=== PATIENT | male | born 1965 | race Caucasian/White ===

== ENCOUNTER 2017-09-22 19:24 | Emergency (ER) | payer MEDICARE ==
[~2017-09-22 19:24] MED LIST: AMLO-511 PO; CLON1PAT13 TD; DIVA-76 PO; FLUD25I IM; METO50 PO; QUET100T PO
== END 2017-09-22 20:10 | disposition left against medical advice (07) ==
LOC: EMS 19:25
DX: Z00.00 Encounter for general adult medical examination without abnormal findings (principal); Z53.21 Procedure and treatment not carried out due to patient leaving prior to being seen by health care provider

== ENCOUNTER 2017-09-22 20:28 | Emergency (ER) | payer MEDICARE ==
[~2017-09-22] VITALS: Ht 188 cm; Wt 93.2 kg
[2017-09-22 21:15] LABS: AMPHET/METH SCREEN,URINE NEGATIVE (NEGATIVE); BARBITURATE SCREEN, URINE NEGATIVE (NEGATIVE); BENZODIAZEPINES SCREEN,URINE NEGATIVE (NEGATIVE); CANNABINOID SCREEN,URINE POSITIVE (NEGATIVE); COCAINE SCREEN,URINE NEGATIVE (NEGATIVE); METHADONE SCREEN, URINE NEGATIVE (NEGATIVE); OPIATE SCREEN,URINE NEGATIVE (NEGATIVE); PHENCYCLIDINE SCREEN,URINE NEGATIVE (NEGATIVE)
[2017-09-22 21:21] LABS: BASOPHILS % (AUTO) 0.7 % (0.0-2.0); EOSINOPHILS % (AUTO) 4.9 % (1.0-6.0); HEMATOCRIT 37.5 % (41-53); LYMPHOCYTES % (AUTO) 32.4 % (22.0-44.0); MEAN CORPUSCULAR HEMOGLOBIN 29.9 pg (26.0-34.0); MEAN CORPUSCULAR HGB CONC 34.6 G/dL (31.0-37.0); MEAN CORPUSCULAR VOLUME 86 fL (80-100); MONOCYTES # (AUTO) 0.6 K/uL (0.1-1.0); MONOCYTES % (AUTO) 6.6 % (2.0-9.0); NEUTROPHILS # (AUTO) 5.1 K/uL (1.8-7.7); NEUTROPHILS % (AUTO) 55.4 % (40.0-70.0); PLATELET COUNT (AUTO) 290 K/uL (150-450); RED BLOOD CELL COUNT(AUTO) 4.35 MIL/uL (4.50-5.90); RED CELL DISTRIBUTION WIDTH 13.1 % (11.5-14.5)
[2017-09-22 21:29] LABS: ANION GAP 5 mmol/L (8-16); CALCIUM, TOTAL 8.6 mg/dL (8.8-10.5); CARBON DIOXIDE 31 mmol/L (22-29); CHLORIDE 99 mmol/L (98-107); CREATININE 0.87 mg/dL (0.60-1.30); GLOMERULAR FILTR. RATE CALC > 60 mL/min (>60); GLUCOSE,RANDOM 88 mg/dL (70-110); POTASSIUM 4.6 mmol/L (3.5-5.1); SODIUM SERUM 135 mmol/L (136-145); UREA NITROGEN, BLOOD 10 mg/dL (7-18)
[2017-09-22 21:35] LABS: ALANINE AMINOTRANSFERASE 23 U/L (12-78); ALBUMIN 3.5 g/dL (3.4-5.0); ALKALINE PHOSPHATASE 73 U/L (46-116); ASPARTATE AMINOTRANSFERASE 27 U/L (15-37); BILIRUBIN,TOTAL 0.4 mg/dL (0.1-1.0); TOTAL PROTEIN, SERUM 6.7 g/dL (6.4-8.2)
[2017-09-23] MEDS ORDERED: OLANZapine 5 MG TABLET PO ONE (02:00)
[2017-09-23 05:03] VITALS: BP 119/86
== END 2017-09-23 05:11 | disposition home or self-care (01) ==
LOC: EMS 20:28
DX: F20.0 Paranoid schizophrenia (principal); F12.10 Cannabis abuse, uncomplicated; F15.10 Other stimulant abuse, uncomplicated; F31.9 Bipolar disorder, unspecified; Z59.0 Homelessness; Z79.899 Other long term (current) drug therapy; Z88.8 Allergy status to other drugs, medicaments and biological substances
CPT/HCPCS: 36415; 80053; 80307; 85025; 99284; G0480

== ENCOUNTER 2017-11-23 16:51 | Inpatient (IN) | payer MEDICARE ==
[~2017-11-23] VITALS: Ht 182.9 cm; Wt 86.5 kg
[~2017-11-23 16:51] MED LIST changes: -DIVA-76 PO
[2017-11-23] MEDS ORDERED: ALBUTEROL SULFATE 2.5 MG/0.5 ML NEB SOLUTION NEB ONE (17:45)
[2017-11-23] MEDS ORDERED: IPRATROPIUM BROMIDE 0.5 MG/2.5 ML NEB SOLUTION NEB ONE (17:45)
[2017-11-23 18:39] LABS: BASOPHILS % (AUTO) 0.5 % (0.0-2.0); HEMATOCRIT 40.5 % (41-53); HEMOGLOBIN 14.3 g/dL (13.5-17.5); LYMPHOCYTES # (AUTO) 2.5 K/uL (1.0-4.8); LYMPHOCYTES % (AUTO) 28.1 % (22.0-44.0); MEAN CORPUSCULAR HEMOGLOBIN 29.9 pg (26.0-34.0); MEAN CORPUSCULAR HGB CONC 35.2 G/dL (31.0-37.0); MEAN CORPUSCULAR VOLUME 85 fL (80-100); MONOCYTES # (AUTO) 0.7 K/uL (0.1-1.0); MONOCYTES % (AUTO) 7.4 % (2.0-9.0); NEUTROPHILS # (AUTO) 5.6 K/uL (1.8-7.7); PLATELET COUNT (AUTO) 247 K/uL (150-450); RED BLOOD CELL COUNT(AUTO) 4.77 MIL/uL (4.50-5.90); RED CELL DISTRIBUTION WIDTH 13.3 % (11.5-14.5)
[2017-11-23 18:47] LABS: ANION GAP 6 mmol/L (8-16); CARBON DIOXIDE 27 mmol/L (22-29); CHLORIDE 103 mmol/L (98-107); CREATININE 0.89 mg/dL (0.60-1.30); GLOMERULAR FILTR. RATE CALC > 60 mL/min (>60); GLUCOSE,RANDOM 122 mg/dL (70-110); SODIUM SERUM 136 mmol/L (136-145); UREA NITROGEN, BLOOD 8 mg/dL (7-18)
[2017-11-23 18:53] LABS: ALANINE AMINOTRANSFERASE 17 U/L (12-78); ALBUMIN 3.6 g/dL (3.4-5.0); ALKALINE PHOSPHATASE 73 U/L (46-116); ASPARTATE AMINOTRANSFERASE 20 U/L (15-37); BILIRUBIN,TOTAL 0.5 mg/dL (0.1-1.0); TOTAL PROTEIN, SERUM 6.7 g/dL (6.4-8.2)
[2017-11-23] MEDS ORDERED: ZOLPIDEM TARTRATE 10 MG TABLET PO PRN (19:00)
[2017-11-23] MEDS ORDERED: QUEtiapine FUMARATE 100 MG TABLET PO PRN (19:00)
[2017-11-23] MEDS ORDERED: IBUPROFEN 400 MG TABLET PO PRN ×2 (19:00→22:15)
[2017-11-23] MEDS ORDERED: ACETAMINOPHEN 325 MG TABLET PO PRN ×2 (19:00→22:15)
[2017-11-23 19:14] LABS: AMPHET/METH SCREEN,URINE NEGATIVE (NEGATIVE); BARBITURATE SCREEN, URINE NEGATIVE (NEGATIVE); BENZODIAZEPINES SCREEN,URINE NEGATIVE (NEGATIVE); CANNABINOID SCREEN,URINE POSITIVE (NEGATIVE); COCAINE SCREEN,URINE NEGATIVE (NEGATIVE); METHADONE SCREEN, URINE NEGATIVE (NEGATIVE); OPIATE SCREEN,URINE NEGATIVE (NEGATIVE)
[2017-11-23 19:15] LABS: PHENCYCLIDINE SCREEN,URINE NEGATIVE (NEGATIVE)
[2017-11-23] MEDS ORDERED: ONDANSETRON HCL 4 MG TABLET PO PRN (22:15)
[2017-11-23] MEDS ORDERED: DOCUSATE SODIUM 100 MG CAPSULE PO PRN (22:15)
[2017-11-23] MEDS ORDERED: ALBUTEROL SULFATE HFA 90 MCG/PUFF 8 GM INHALER IH PRN (22:15)
[2017-11-23] MEDS ORDERED: MAGNESIUM HYDROXIDE SUSPENSION 30 ML UDCUP PO PRN (22:15)
[2017-11-23] MEDS ORDERED: PETROLATUM,WHITE 71 GM JELLY TP PRN (22:15)
[2017-11-23] MEDS ORDERED: LOPERAMIDE HCL 2 MG CAPSULE PO PRN (22:15)
[2017-11-23] MEDS ORDERED: GuaiFENesin/D-METHORPHAN [SUGAR-FREE] 200-20MG/10 ML SYRUP UDCUP PO PRN (22:15)
[2017-11-23] MEDS ORDERED: NICOTINE 14 MG/24 HOUR PATCH TD PRN (22:15)
[2017-11-23] MEDS ORDERED: MAG HYDROX/AL HYDROX/SIMETH ES 30 ML SUSPENSION UDCUP PO PRN (22:15)
[2017-11-23] MEDS ORDERED: CloNIDine HCL 0.1 MG TABLET PO PRN (22:15)
[2017-11-24 09:26] VITALS: BP 154/92
[2017-11-24] MEDS: NICOTINE 21 MG/24 HOUR PATCH TD SCH (10:48)
[2017-11-24] MEDS: LORazepam 2 MG TABLET PO PRN (11:16)
[2017-11-24 20:54] VITALS: BP 149/89
[2017-11-24] MEDS: QUEtiapine FUMARATE 25 MG TABLET PO SCH (21:09)
[2017-11-24] MEDS: BENZTROPINE MESYLATE 1 MG TABLET PO SCH (21:10)
[2017-11-25 09:22] VITALS: BP 148/95
[2017-11-25] MEDS: NICOTINE 21 MG/24 HOUR PATCH TD SCH (10:17)
[2017-11-25] MEDS: LORazepam 2 MG TABLET PO PRN ×2 (11:21→16:18)
[2017-11-25] MEDS: AmLODIPine BESYLATE 5 MG TABLET PO SCH (16:17)
[2017-11-25 19:51] VITALS: BP 146/92
[2017-11-25] MEDS: QUEtiapine FUMARATE 25 MG TABLET PO SCH (20:55)
[2017-11-25] MEDS: BENZTROPINE MESYLATE 1 MG TABLET PO SCH (20:55)
[2017-11-26] MEDS: AmLODIPine BESYLATE 5 MG TABLET PO SCH (09:03)
[2017-11-26] MEDS: NICOTINE 21 MG/24 HOUR PATCH TD SCH (09:03)
[2017-11-26] MEDS: LORazepam 2 MG TABLET PO PRN (09:32)
[2017-11-26] MEDS ORDERED: BENZ1TAB10 PO (09:38)
[2017-11-26] MEDS ORDERED: AMLO-511 PO (09:38)
[2017-11-26 10:10] VITALS: BP 146/112
== END 2017-11-26 15:19 | disposition home or self-care (01) | DRG 885 ==
LOC: EMS 16:53 → 3EI 20:21
DX: F20.0 Paranoid schizophrenia (principal); R45.851 Suicidal ideations; F19.20 Other psychoactive substance dependence, uncomplicated; I10 Essential (primary) hypertension; F31.9 Bipolar disorder, unspecified; F12.10 Cannabis abuse, uncomplicated; F15.90 Other stimulant use, unspecified, uncomplicated; R73.9 Hyperglycemia, unspecified; F17.210 Nicotine dependence, cigarettes, uncomplicated; Z59.0 Homelessness; Z91.5 Personal history of self-harm; Z71.51 Drug abuse counseling and surveillance of drug abuser
CPT/HCPCS: 99285; G0480

== ENCOUNTER 2018-03-03 15:34 | Inpatient (IN) | payer MEDICARE ==
[~2018-03-03] VITALS: Ht 182.9 cm; Wt 93.0 kg
[~2018-03-03 15:34] MED LIST changes: +BENZ1TAB10 PO; -CLON1PAT13 TD; -FLUD25I IM; -METO50 PO
[2018-03-03] MEDS ORDERED: FLUP2.5 PO (16:19)
[2018-03-03 16:58] LABS: BASOPHILS % (AUTO) 0.5 % (0.0-2.0); HEMATOCRIT 42.2 % (41-53); HEMOGLOBIN 14.6 g/dL (13.5-17.5); LYMPHOCYTES # (AUTO) 3.1 K/uL (1.0-4.8); LYMPHOCYTES % (AUTO) 36.3 % (22.0-44.0); MEAN CORPUSCULAR HGB CONC 34.6 G/dL (31.0-37.0); MEAN CORPUSCULAR VOLUME 87 fL (80-100); MONOCYTES # (AUTO) 0.7 K/uL (0.1-1.0); MONOCYTES % (AUTO) 7.7 % (2.0-9.0); NEUTROPHILS # (AUTO) 4.3 K/uL (1.8-7.7); NEUTROPHILS % (AUTO) 50.5 % (40.0-70.0); PLATELET COUNT (AUTO) 310 K/uL (150-450); RED BLOOD CELL COUNT(AUTO) 4.86 MIL/uL (4.50-5.90); RED CELL DISTRIBUTION WIDTH 13.1 % (11.5-14.5)
[2018-03-03 17:07] LABS: AMPHET/METH SCREEN,URINE NEGATIVE (NEGATIVE); BARBITURATE SCREEN, URINE NEGATIVE (NEGATIVE); BENZODIAZEPINES SCREEN,URINE NEGATIVE (NEGATIVE); CANNABINOID SCREEN,URINE POSITIVE (NEGATIVE); COCAINE SCREEN,URINE NEGATIVE (NEGATIVE); METHADONE SCREEN, URINE NEGATIVE (NEGATIVE); OPIATE SCREEN,URINE NEGATIVE (NEGATIVE)
[2018-03-03 17:08] LABS: PHENCYCLIDINE SCREEN,URINE NEGATIVE (NEGATIVE)
[2018-03-03 17:10] LABS: ANION GAP 5 mmol/L (8-16); CALCIUM, TOTAL 9.1 mg/dL (8.8-10.5); CARBON DIOXIDE 31 mmol/L (22-29); CHLORIDE 100 mmol/L (98-107); CREATININE 0.68 mg/dL (0.60-1.30); GLOMERULAR FILTR. RATE CALC > 60 mL/min (>60); GLUCOSE,RANDOM 103 mg/dL (70-110); POTASSIUM 5.2 mmol/L (3.5-5.1); SODIUM SERUM 136 mmol/L (136-145); UREA NITROGEN, BLOOD 9 mg/dL (7-18)
[2018-03-03 17:15] LABS: ALANINE AMINOTRANSFERASE 17 U/L (12-78); ALBUMIN 3.5 g/dL (3.4-5.0); ALKALINE PHOSPHATASE 85 U/L (46-116); ASPARTATE AMINOTRANSFERASE 16 U/L (15-37); BILIRUBIN,TOTAL 0.2 mg/dL (0.1-1.0); TOTAL PROTEIN, SERUM 6.9 g/dL (6.4-8.2)
[2018-03-03] MEDS ORDERED: QUEtiapine FUMARATE 25 MG TABLET PO PRN (17:30)
[2018-03-03] MEDS ORDERED: ZOLPIDEM TARTRATE 10 MG TABLET PO PRN (17:30)
[2018-03-03 20:20] VITALS: BP 135/82
[2018-03-03] MEDS ORDERED: PETROLATUM,WHITE 71 GM JELLY TP PRN (21:00)
[2018-03-03] MEDS ORDERED: MAGNESIUM HYDROXIDE SUSPENSION 30 ML UDCUP PO PRN (21:00)
[2018-03-03] MEDS ORDERED: IBUPROFEN 400 MG TABLET PO PRN (21:00)
[2018-03-03] MEDS ORDERED: MAG HYDROX/AL HYDROX/SIMETH ES 30 ML SUSPENSION UDCUP PO PRN (21:00)
[2018-03-03] MEDS ORDERED: LOPERAMIDE HCL 2 MG CAPSULE PO PRN (21:00)
[2018-03-03] MEDS ORDERED: ACETAMINOPHEN 325 MG TABLET PO PRN (21:00)
[2018-03-03] MEDS ORDERED: ALBUTEROL SULFATE HFA 90 MCG/PUFF 8 GM INHALER IH PRN (21:00)
[2018-03-03] MEDS ORDERED: ONDANSETRON HCL 4 MG TABLET PO PRN (21:00)
[2018-03-03] MEDS ORDERED: DOCUSATE SODIUM 100 MG CAPSULE PO PRN (21:00)
[2018-03-03] MEDS ORDERED: GuaiFENesin/D-METHORPHAN [SUGAR-FREE] 200-20MG/10 ML SYRUP UDCUP PO PRN (21:00)
[2018-03-04 08:03] VITALS: BP 165/100
[2018-03-04] MEDS ORDERED: QUET25TA PO (11:41)
[2018-03-04] MEDS ORDERED: SODIUM POLYSTYRENE SULFONATE 15 GM/60 ML SUSPENSION BOTTLE PO ONE (11:45)
[2018-03-04] MEDS: AmLODIPine BESYLATE 5 MG TABLET PO SCH (12:51)
[2018-03-04] MEDS: CloNIDine HCL 0.1 MG TABLET PO PRN (16:42)
[2018-03-04] MEDS: FluPHENAZine HCL 5 MG TABLET PO SCH (16:42)
[2018-03-04] MEDS: BENZTROPINE MESYLATE 2 MG TABLET PO SCH (16:43)
[2018-03-04 17:13] VITALS: BP_SYST 163; BP_SYST 170; BP_DIAS 100; BP_DIAS 105
[2018-03-04 17:46] VITALS: BP 162/95
[2018-03-04] MEDS: TraZODone HCL 50 MG TABLET PO SCH (20:14)
[2018-03-04] MEDS: QUEtiapine FUMARATE 25 MG TABLET PO SCH (20:16)
[2018-03-05] MEDS: AmLODIPine BESYLATE 5 MG TABLET PO SCH (08:14)
[2018-03-05] MEDS: BENZTROPINE MESYLATE 2 MG TABLET PO SCH ×2 (08:14→16:01)
[2018-03-05] MEDS: FluPHENAZine HCL 5 MG TABLET PO SCH ×2 (08:14→16:01)
[2018-03-05] MEDS: NICOTINE 14 MG/24 HOUR PATCH TD PRN (08:43)
[2018-03-05 09:33] VITALS: BP 158/114
[2018-03-05] MEDS: LORazepam 2 MG TABLET PO PRN ×2 (12:42→20:15)
[2018-03-05] MEDS: CloNIDine HCL 0.1 MG TABLET PO PRN (16:02)
[2018-03-05 17:00] VITALS: BP 158/109
[2018-03-05] MEDS: TraZODone HCL 50 MG TABLET PO SCH (20:09)
[2018-03-05] MEDS: QUEtiapine FUMARATE 25 MG TABLET PO SCH (20:09)
[2018-03-06 07:19] LABS: CHOL/HDL RATIO 2.9 (4.2-7.3); POTASSIUM 4.3 mmol/L (3.5-5.1); THYROID STIMULATING HORMONE 1.72 uIU/mL (0.36-3.74)
[2018-03-06] MEDS: FluPHENAZine HCL 5 MG TABLET PO SCH (08:11)
[2018-03-06] MEDS: BENZTROPINE MESYLATE 2 MG TABLET PO SCH (08:11)
[2018-03-06] MEDS: LORazepam 2 MG TABLET PO PRN (08:14)
[2018-03-06] MEDS: NICOTINE 14 MG/24 HOUR PATCH TD PRN (08:15)
[2018-03-06 08:49] VITALS: BP 158/116
[2018-03-06] MEDS ORDERED: AmLODIPine BESYLATE 5 MG TABLET PO SCH (09:00)
[2018-03-06] MEDS ORDERED: BENZ2TAB10 PO (14:09)
[2018-03-06] MEDS ORDERED: TRAZ-219 PO (14:09)
[2018-03-06] MEDS ORDERED: FLUP5 PO (14:09)
[2018-03-06] MEDS ORDERED: FLUD25I IM (14:10)
[2018-03-06] MEDS ORDERED: AMLO-511 PO (14:13)
[2018-03-18] MEDS ORDERED: FluPHENAZine DECANOATE 25 MG/ML IM SCH (09:00)
== END 2018-03-06 15:27 | disposition home or self-care (01) | DRG 885 ==
LOC: EMS 15:35 → 3EX 18:00
PROVIDERS: ADMIT Psychiatry & Neurology Child & Adolescent Psychiatry; ATTEND Psychiatry & Neurology Child & Adolescent Psychiatry
DX: F20.0 Paranoid schizophrenia (principal); R45.851 Suicidal ideations; F31.9 Bipolar disorder, unspecified; I10 Essential (primary) hypertension; J44.9 Chronic obstructive pulmonary disease, unspecified; R45.850 Homicidal ideations; F17.200 Nicotine dependence, unspecified, uncomplicated; Z71.6 Tobacco abuse counseling; F15.90 Other stimulant use, unspecified, uncomplicated; E87.6 Hypokalemia; Z71.51 Drug abuse counseling and surveillance of drug abuser; Z79.899 Other long term (current) drug therapy
CPT/HCPCS: 84132; 84443; 96360; G0378; G0480

== ENCOUNTER 2018-10-26 15:46 | Inpatient (IN) | payer MEDICARE ==
[~2018-10-26] VITALS: Ht 182.9 cm; Wt 84.4 kg
[~2018-10-26 15:46] MED LIST changes: -AMLO-511 PO; -BENZ1TAB10 PO; +BENZ2TAB10 PO; +CLON-570 PO; +FLUD25I IM; +FLUP5 PO; +METO50 PO; -QUET100T PO; +QUET25TA PO
[2018-10-26 16:55] LABS: BASOPHILS % (AUTO) 0.3 % (0.0-2.0); EOSINOPHILS % (AUTO) 2.1 % (1.0-6.0); HEMOGLOBIN 13.8 g/dL (13.5-17.5); LYMPHOCYTES % (AUTO) 26.2 % (22.0-44.0); MEAN CORPUSCULAR HEMOGLOBIN 29.8 pg (26.0-34.0); MEAN CORPUSCULAR HGB CONC 33.7 G/dL (31.0-37.0); MEAN CORPUSCULAR VOLUME 88 fL (80-100); MONOCYTES # (AUTO) 0.5 K/uL (0.1-1.0); NEUTROPHILS # (AUTO) 5.1 K/uL (1.8-7.7); NEUTROPHILS % (AUTO) 65.4 % (40.0-70.0); PLATELET COUNT (AUTO) 265 K/uL (150-450); RED BLOOD CELL COUNT(AUTO) 4.65 MIL/uL (4.50-5.90); RED CELL DISTRIBUTION WIDTH 13.2 % (11.5-14.5)
[2018-10-26 17:12] LABS: ANION GAP 8 mmol/L (8-16); CALCIUM, TOTAL 8.9 mg/dL (8.8-10.5); CARBON DIOXIDE 26 mmol/L (22-29); CHLORIDE 104 mmol/L (98-107); CREATININE 0.65 mg/dL (0.60-1.30); GLOMERULAR FILTR. RATE CALC > 60 mL/min (>60); GLUCOSE,RANDOM 93 mg/dL (70-110); SODIUM SERUM 138 mmol/L (136-145); UREA NITROGEN, BLOOD 6 mg/dL (7-18)
[2018-10-26 17:17] LABS: ALANINE AMINOTRANSFERASE 7 U/L (12-78); ALBUMIN 3.9 g/dL (3.4-5.0); ALKALINE PHOSPHATASE 78 U/L (46-116); ASPARTATE AMINOTRANSFERASE 17 U/L (15-37); BILIRUBIN,TOTAL 0.4 mg/dL (0.1-1.0); TOTAL PROTEIN, SERUM 6.8 g/dL (6.4-8.2)
[2018-10-26 19:47] LABS: AMPHET/METH SCREEN,URINE NEGATIVE (NEGATIVE); BARBITURATE SCREEN, URINE NEGATIVE (NEGATIVE); BENZODIAZEPINES SCREEN,URINE NEGATIVE (NEGATIVE); CANNABINOID SCREEN,URINE POSITIVE (NEGATIVE); COCAINE SCREEN,URINE NEGATIVE (NEGATIVE); METHADONE SCREEN, URINE NEGATIVE (NEGATIVE); OPIATE SCREEN,URINE NEGATIVE (NEGATIVE)
[2018-10-26 19:49] LABS: PHENCYCLIDINE SCREEN,URINE NEGATIVE (NEGATIVE)
[2018-10-26] MEDS ORDERED: HALOPERIDOL 5 MG TABLET PO PRN (22:00)
[2018-10-27] MEDS: LORazepam 2 MG TABLET PO PRN ×2 (00:23→10:38)
[2018-10-27] MEDS: ZOLPIDEM TARTRATE 10 MG TABLET PO PRN (00:23)
[2018-10-27 00:48] VITALS: BP 164/114
[2018-10-27 01:30] VITALS: BP 148/93
[2018-10-27 06:01] LABS: CHOL/HDL RATIO 2.8 (4.2-7.3)
[2018-10-27 09:00] VITALS: BP 148/98
[2018-10-27] MEDS: METOPROLOL TARTRATE 50 MG TABLET PO SCH ×2 (10:37→16:42)
[2018-10-27] MEDS: CloNIDine HCL 0.1 MG TABLET PO SCH ×2 (10:38→16:42)
[2018-10-27 16:40] VITALS: BP 159/98
[2018-10-27] MEDS ORDERED: ONDANSETRON HCL 4 MG TABLET PO PRN (21:30)
[2018-10-27] MEDS ORDERED: LOPERAMIDE HCL 2 MG CAPSULE PO PRN (21:30)
[2018-10-27] MEDS ORDERED: BENZOCAINE/MENTHOL LOZENGE MM PRN (21:30)
[2018-10-27] MEDS ORDERED: CloNIDine HCL 0.1 MG TABLET PO PRN (21:30)
[2018-10-27] MEDS ORDERED: MAGNESIUM HYDROXIDE SUSPENSION 30 ML UDCUP PO PRN (21:30)
[2018-10-27] MEDS ORDERED: IBUPROFEN 600 MG TABLET PO PRN (21:30)
[2018-10-27] MEDS ORDERED: ACETAMINOPHEN 325 MG TABLET PO PRN (21:30)
[2018-10-27] MEDS ORDERED: ALBUTEROL SULFATE HFA 90 MCG/PUFF 8 GM INHALER IH PRN (21:30)
[2018-10-27] MEDS ORDERED: PETROLATUM,WHITE 28 GM JELLY TP PRN (21:30)
[2018-10-27] MEDS ORDERED: DOCUSATE SODIUM 100 MG CAPSULE PO PRN (21:30)
[2018-10-27] MEDS ORDERED: OMEPRAZOLE 20 MG CAPSULE PO PRN (21:30)
[2018-10-27] MEDS ORDERED: BACITRACIN 28.4 GM OINTMENT TP PRN (21:30)
[2018-10-27] MEDS ORDERED: MAG HYDROX/AL HYDROX/SIMETH ES 30 ML SUSPENSION UDCUP PO PRN (21:30)
[2018-10-27] MEDS: TraZODone HCL 50 MG TABLET PO SCH (22:13)
[2018-10-27] MEDS: FluPHENAZine HCL 10 MG TABLET PO SCH (22:13)
[2018-10-28 08:30] VITALS: BP 135/74
[2018-10-28] MEDS: CloNIDine HCL 0.1 MG TABLET PO SCH ×2 (08:45→17:08)
[2018-10-28] MEDS: BENZTROPINE MESYLATE 1 MG TABLET PO SCH ×2 (08:45→17:09)
[2018-10-28] MEDS: METOPROLOL TARTRATE 50 MG TABLET PO SCH ×2 (08:48→17:09)
[2018-10-28] MEDS ORDERED: FluPHENAZine DECANOATE 25 MG/ML IM SCH (09:00)
[2018-10-28 16:24] VITALS: BP 155/91
[2018-10-28] MEDS: TraZODone HCL 50 MG TABLET PO SCH (20:21)
[2018-10-28] MEDS: FluPHENAZine HCL 10 MG TABLET PO SCH (20:22)
[2018-10-28] MEDS: LORazepam 2 MG TABLET PO PRN (22:35)
[2018-10-28] MEDS: ZOLPIDEM TARTRATE 10 MG TABLET PO PRN (22:37)
[2018-10-29] MEDS: METOPROLOL TARTRATE 50 MG TABLET PO SCH ×2 (08:56→16:41)
[2018-10-29] MEDS: BENZTROPINE MESYLATE 1 MG TABLET PO SCH ×2 (08:56→16:41)
[2018-10-29] MEDS: CloNIDine HCL 0.1 MG TABLET PO SCH ×2 (08:57→16:40)
[2018-10-29 09:01] VITALS: BP 156/109
[2018-10-29] MEDS: LORazepam 2 MG TABLET PO PRN (09:17)
[2018-10-29 18:45] VITALS: BP 161/101
[2018-10-29] MEDS: FluPHENAZine HCL 10 MG TABLET PO SCH (20:38)
[2018-10-29] MEDS: TraZODone HCL 50 MG TABLET PO SCH (20:38)
[2018-10-30] MEDS: METOPROLOL TARTRATE 50 MG TABLET PO SCH (08:37)
[2018-10-30] MEDS: CloNIDine HCL 0.1 MG TABLET PO SCH (08:37)
[2018-10-30] MEDS: BENZTROPINE MESYLATE 1 MG TABLET PO SCH (08:37)
[2018-10-30] MEDS: LORazepam 2 MG TABLET PO PRN ×2 (08:37→12:38)
[2018-10-30 09:51] VITALS: BP 136/86
[2018-10-30] MEDS ORDERED: BENZ1TAB10 PO (14:11)
[2018-10-30] MEDS ORDERED: TRAZ-252 PO (14:11)
== END 2018-10-30 16:40 | disposition home or self-care (01) | DRG 885 ==
LOC: EMS 15:46 → 3EX 22:00
PROVIDERS: ADMIT Psychiatry & Neurology Psychiatry; ATTEND Psychiatry & Neurology Psychiatry
DX: F20.0 Paranoid schizophrenia (principal); R45.851 Suicidal ideations; F12.90 Cannabis use, unspecified, uncomplicated; G47.00 Insomnia, unspecified; I10 Essential (primary) hypertension; K59.00 Constipation, unspecified; Z59.0 Homelessness; Z87.891 Personal history of nicotine dependence; Z88.0 Allergy status to penicillin; Z88.2 Allergy status to sulfonamides; Z88.8 Allergy status to other drugs, medicaments and biological substances; Z56.0 Unemployment, unspecified
CPT/HCPCS: G0378; G0480; J2680

== ENCOUNTER 2018-12-29 14:43 | Inpatient (IN) | payer MEDICARE ==
[~2018-12-29] VITALS: Ht 182.9 cm; Wt 83.5 kg
[~2018-12-29 14:43] MED LIST changes: +BENZ1TAB10 PO; -BENZ2TAB10 PO; -QUET25TA PO; +TRAZ-252 PO
[2018-12-29 16:43] LABS: BASOPHILS % (AUTO) 0.4 % (0.0-2.0); EOSINOPHILS % (AUTO) 2.4 % (1.0-6.0); LYMPHOCYTES # (AUTO) 1.9 K/uL (1.0-4.8); LYMPHOCYTES % (AUTO) 19.1 % (22.0-44.0); MEAN CORPUSCULAR HEMOGLOBIN 29.9 pg (26.0-34.0); MEAN CORPUSCULAR VOLUME 88 fL (80-100); MONOCYTES # (AUTO) 0.8 K/uL (0.1-1.0); MONOCYTES % (AUTO) 7.5 % (2.0-9.0); NEUTROPHILS # (AUTO) 7.1 K/uL (1.8-7.7); NEUTROPHILS % (AUTO) 70.6 % (40.0-70.0); PLATELET COUNT (AUTO) 306 K/uL (150-450); RED BLOOD CELL COUNT(AUTO) 4.67 MIL/uL (4.50-5.90); RED CELL DISTRIBUTION WIDTH 13.2 % (11.5-14.5)
[2018-12-29 16:56] LABS: ANION GAP 7 mmol/L (8-16); CALCIUM, TOTAL 8.8 mg/dL (8.8-10.5); CARBON DIOXIDE 29 mmol/L (22-29); CHLORIDE 100 mmol/L (98-107); CREATININE 0.66 mg/dL (0.60-1.30); GLOMERULAR FILTR. RATE CALC > 60 mL/min (>60); GLUCOSE,RANDOM 107 mg/dL (70-110); POTASSIUM 3.8 mmol/L (3.5-5.1); SODIUM SERUM 136 mmol/L (136-145); UREA NITROGEN, BLOOD 8 mg/dL (7-18)
[2018-12-29] MEDS ORDERED: HALOPERIDOL 5 MG TABLET PO ONE (17:00)
[2018-12-29 17:02] LABS: ALANINE AMINOTRANSFERASE 13 U/L (12-78); ALBUMIN 3.7 g/dL (3.4-5.0); ALKALINE PHOSPHATASE 81 U/L (46-116); ASPARTATE AMINOTRANSFERASE 24 U/L (15-37); BILIRUBIN,TOTAL 0.4 mg/dL (0.1-1.0); TOTAL PROTEIN, SERUM 6.8 g/dL (6.4-8.2)
[2018-12-29 17:17] LABS: AMPHET/METH SCREEN,URINE POSITIVE (NEGATIVE); BARBITURATE SCREEN, URINE NEGATIVE (NEGATIVE); BENZODIAZEPINES SCREEN,URINE NEGATIVE (NEGATIVE); CANNABINOID SCREEN,URINE POSITIVE (NEGATIVE); COCAINE SCREEN,URINE NEGATIVE (NEGATIVE); METHADONE SCREEN, URINE NEGATIVE (NEGATIVE); OPIATE SCREEN,URINE NEGATIVE (NEGATIVE)
[2018-12-29 17:23] LABS: PHENCYCLIDINE SCREEN,URINE NEGATIVE (NEGATIVE)
[2018-12-29] MEDS ORDERED: ZOLPIDEM TARTRATE 10 MG TABLET PO PRN (18:15)
[2018-12-29] MEDS ORDERED: HALOPERIDOL 5 MG TABLET PO PRN (18:15)
[2018-12-29 21:06] VITALS: BP 173/100
[2018-12-29] MEDS ORDERED: ALBUTEROL SULFATE HFA 90 MCG/PUFF 8 GM INHALER IH PRN (21:30)
[2018-12-29] MEDS ORDERED: IBUPROFEN 400 MG TABLET PO PRN (21:30)
[2018-12-29] MEDS ORDERED: ONDANSETRON HCL 4 MG TABLET PO PRN (21:30)
[2018-12-29] MEDS ORDERED: ACETAMINOPHEN 325 MG TABLET PO PRN (21:30)
[2018-12-29] MEDS ORDERED: GuaiFENesin/D-METHORPHAN [SUGAR-FREE] 200-20MG/10 ML SYRUP UDCUP PO PRN (21:30)
[2018-12-29] MEDS ORDERED: PETROLATUM,WHITE 28 GM JELLY TP PRN (21:30)
[2018-12-29] MEDS ORDERED: MAG HYDROX/AL HYDROX/SIMETH ES 30 ML SUSPENSION UDCUP PO PRN (21:30)
[2018-12-29] MEDS ORDERED: LOPERAMIDE HCL 2 MG CAPSULE PO PRN (21:30)
[2018-12-29] MEDS ORDERED: MAGNESIUM HYDROXIDE SUSPENSION 30 ML UDCUP PO PRN (21:30)
[2018-12-29] MEDS ORDERED: DOCUSATE SODIUM 100 MG CAPSULE PO PRN (21:30)
[2018-12-29] MEDS ORDERED: -PHARMACY VACCINE NOTE- MISC ONE (22:30)
[2018-12-29] MEDS ORDERED: PNEUMOCOCCAL VACCINE POLYVALENT 0.5 ML VIAL [PPSV23] IM ONE (22:30)
[2018-12-29] MEDS: CloNIDine HCL 0.1 MG TABLET PO PRN (22:51)
[2018-12-30 06:16] VITALS: BP 159/101
[2018-12-30 07:52] LABS: APPEARANCE,URINE CLEAR (CLEAR); BILIRUBIN,URINE NEGATIVE (NEGATIVE); GLUCOSE, URINE (UA) NEGATIVE (NEGATIVE); KETONES,URINE NEGATIVE (NEGATIVE); LEUKOCYTE ESTERASE ,URINE NEGATIVE (NEGATIVE); NITRATE,URINE NEGATIVE (NEGATIVE); OCCULT BLOOD,URINE NEGATIVE (NEGATIVE); PROTEIN,URINE NEGATIVE (NEGATIVE); UROBILINOGEN,URINE 0.2 mg/dL (<=1.0)
[2018-12-30] MEDS: CloNIDine HCL 0.1 MG TABLET PO SCH ×2 (08:40→16:45)
[2018-12-30] MEDS: METOPROLOL TARTRATE 50 MG TABLET PO SCH ×2 (08:40→16:45)
[2018-12-30] MEDS: NICOTINE 14 MG/24 HOUR PATCH TD PRN (08:45)
[2018-12-30] MEDS: LORazepam 2 MG TABLET PO PRN (08:46)
[2018-12-30] MEDS: BENZTROPINE MESYLATE 2 MG TABLET PO SCH ×2 (09:45→16:45)
[2018-12-30] MEDS: DiphenhydrAMINE HCL 50 MG CAPSULE PO SCH ×2 (09:45→16:45)
[2018-12-30 09:56] VITALS: BP 155/107
[2018-12-30] MEDS ORDERED: FLUP10 PO (12:34)
[2018-12-30] MEDS: OLANZapine 5 MG TABLET PO SCH ×2 (14:02→16:45)
[2018-12-30 17:32] VITALS: BP 145/95
[2018-12-30] MEDS: TraZODone HCL 50 MG TABLET PO SCH (20:26)
[2018-12-31 05:50] VITALS: BP 121/77
[2018-12-31] MEDS: CloNIDine HCL 0.1 MG TABLET PO SCH ×2 (08:19→16:21)
[2018-12-31] MEDS: DiphenhydrAMINE HCL 50 MG CAPSULE PO SCH ×2 (08:20→16:21)
[2018-12-31] MEDS: METOPROLOL TARTRATE 50 MG TABLET PO SCH ×2 (08:20→16:22)
[2018-12-31] MEDS: BENZTROPINE MESYLATE 2 MG TABLET PO SCH ×2 (08:20→16:21)
[2018-12-31] MEDS: OLANZapine 5 MG TABLET PO SCH ×2 (08:21→16:22)
[2018-12-31 09:18] VITALS: BP 149/113
[2018-12-31] MEDS: NICOTINE 14 MG/24 HOUR PATCH TD PRN (12:57)
[2018-12-31] MEDS: TraZODone HCL 50 MG TABLET PO SCH (21:02)
[2018-12-31] MEDS: LORazepam 2 MG TABLET PO PRN (21:02)
[2018-12-31 21:07] VITALS: BP 148/95
[2019-01-01 03:19] VITALS: BP 170/109
[2019-01-01 03:33] VITALS: BP 184/113
[2019-01-01] MEDS: CloNIDine HCL 0.1 MG TABLET PO PRN (03:35)
[2019-01-01 04:35] VITALS: BP 144/102
[2019-01-01] MEDS: CloNIDine HCL 0.1 MG TABLET PO SCH ×2 (08:15→17:23)
[2019-01-01] MEDS: DiphenhydrAMINE HCL 50 MG CAPSULE PO SCH ×2 (08:15→17:23)
[2019-01-01] MEDS: OLANZapine 5 MG TABLET PO SCH (08:15)
[2019-01-01] MEDS: METOPROLOL TARTRATE 50 MG TABLET PO SCH ×2 (08:15→17:24)
[2019-01-01] MEDS: BENZTROPINE MESYLATE 2 MG TABLET PO SCH ×2 (08:15→17:24)
[2019-01-01 10:23] VITALS: BP 181/100
[2019-01-01] MEDS: LORazepam 2 MG TABLET PO PRN (14:23)
[2019-01-01 16:57] VITALS: BP 134/84
[2019-01-01] MEDS: OLANZapine 10 MG TABLET PO SCH (17:26)
[2019-01-01] MEDS: TraZODone HCL 50 MG TABLET PO SCH (20:11)
[2019-01-02 08:00] VITALS: BP 150/97
[2019-01-02] MEDS: DiphenhydrAMINE HCL 50 MG CAPSULE PO SCH (08:41)
[2019-01-02] MEDS: CloNIDine HCL 0.1 MG TABLET PO SCH (08:41)
[2019-01-02] MEDS: METOPROLOL TARTRATE 50 MG TABLET PO SCH (08:41)
[2019-01-02] MEDS: BENZTROPINE MESYLATE 2 MG TABLET PO SCH (08:41)
[2019-01-02] MEDS: OLANZapine 10 MG TABLET PO SCH (08:42)
[2019-01-02] MEDS ORDERED: DIPH50 PO (12:07)
[2019-01-02] MEDS ORDERED: OLAN10TA3 PO (12:07)
[2019-01-02] MEDS ORDERED: BENZ2TAB10 PO (12:09)
[2019-01-02] MEDS ORDERED: METO50 PO (12:09)
== END 2019-01-02 14:02 | disposition home or self-care (01) | DRG 885 ==
LOC: EMS 14:45 → 3EX 20:35
PROVIDERS: ADMIT Psychiatry & Neurology Psychiatry; ATTEND Psychiatry & Neurology Psychiatry
DX: F25.9 Schizoaffective disorder, unspecified (principal); R45.851 Suicidal ideations; F31.9 Bipolar disorder, unspecified; F41.9 Anxiety disorder, unspecified; G44.209 Tension-type headache, unspecified, not intractable; F12.90 Cannabis use, unspecified, uncomplicated; F10.10 Alcohol abuse, uncomplicated; R00.0 Tachycardia, unspecified; F19.10 Other psychoactive substance abuse, uncomplicated; I10 Essential (primary) hypertension; F17.210 Nicotine dependence, cigarettes, uncomplicated; Z81.8 Family history of other mental and behavioral disorders; Z91.5 Personal history of self-harm; Z59.0 Homelessness; Z71.41 Alcohol abuse counseling and surveillance of alcoholic; Z71.51 Drug abuse counseling and surveillance of drug abuser; Z88.0 Allergy status to penicillin; Z88.2 Allergy status to sulfonamides
CPT/HCPCS: G0378; G0480

== ENCOUNTER 2019-08-25 08:03 | Inpatient (IN) | payer MEDICARE, MEDICAID ==
[~2019-08-25] VITALS: Ht 180.3 cm; Wt 82.8 kg
[~2019-08-25 08:03] MED LIST changes: -BENZ1TAB10 PO; +BENZ2TAB10 PO; -CLON-570 PO; +CLON0.1T83 PO; +DIPH50 PO; -FLUP5 PO; +OLAN10TA3 PO
[2019-08-25] MEDS ORDERED: FLUP10TA8 PO (08:27)
[2019-08-25] MEDS ORDERED: BENZ1TAB10 PO (08:27)
[2019-08-25] MEDS ORDERED: LORazepam 2 MG/ML VIAL IM ONE (08:45)
[2019-08-25] MEDS ORDERED: HALOPERIDOL LACTATE 5 MG/ML VIAL IM ONE (08:45)
[2019-08-25] MEDS ORDERED: DiphenhydrAMINE HCL 50 MG/ML VIAL IM ONE (08:45)
[2019-08-25 09:51] LABS: BASOPHILS % (AUTO) 0.5 % (0.0-2.0); EOSINOPHILS % (AUTO) 0.3 % (1.0-6.0); HEMATOCRIT 38.4 % (41-53); HEMOGLOBIN 12.8 g/dL (13.5-17.5); LYMPHOCYTES # (AUTO) 1.3 K/uL (1.0-4.8); LYMPHOCYTES % (AUTO) 8.9 % (22.0-44.0); MEAN CORPUSCULAR HEMOGLOBIN 28.5 pg (26.0-34.0); MEAN CORPUSCULAR HGB CONC 33.4 G/dL (31.0-37.0); MEAN CORPUSCULAR VOLUME 85 fL (80-100); MONOCYTES # (AUTO) 1.2 K/uL (0.1-1.0); MONOCYTES % (AUTO) 8.1 % (2.0-9.0); NEUTROPHILS % (AUTO) 82.2 % (40.0-70.0); PLATELET COUNT (AUTO) 310 K/uL (150-450); RED CELL DISTRIBUTION WIDTH 13.9 % (11.5-14.5)
[2019-08-25 10:06] LABS: ANION GAP 10 mmol/L (8-16); CALCIUM, TOTAL 9.1 mg/dL (8.8-10.5); CARBON DIOXIDE 27 mmol/L (22-29); CHLORIDE 101 mmol/L (98-107); CREATININE 0.47 mg/dL (0.60-1.30); GLOMERULAR FILTR. RATE CALC > 60 mL/min (>60); GLUCOSE,RANDOM 95 mg/dL (70-110); POTASSIUM 3.8 mmol/L (3.5-5.1); SODIUM SERUM 138 mmol/L (136-145); UREA NITROGEN, BLOOD 12 mg/dL (7-18)
[2019-08-25 10:09] LABS: ALANINE AMINOTRANSFERASE 15 U/L (12-78); ALBUMIN 3.8 g/dL (3.4-5.0); ALKALINE PHOSPHATASE 95 U/L (46-116); ASPARTATE AMINOTRANSFERASE 22 U/L (15-37); BILIRUBIN,TOTAL 0.6 mg/dL (0.1-1.0); TOTAL PROTEIN, SERUM 7.3 g/dL (6.4-8.2)
[2019-08-25 10:44] LABS: AMPHET/METH SCREEN,URINE POSITIVE (NEGATIVE); BARBITURATE SCREEN, URINE NEGATIVE (NEGATIVE); BENZODIAZEPINES SCREEN,URINE NEGATIVE (NEGATIVE); CANNABINOID SCREEN,URINE POSITIVE (NEGATIVE); COCAINE SCREEN,URINE NEGATIVE (NEGATIVE); METHADONE SCREEN, URINE NEGATIVE (NEGATIVE); OPIATE SCREEN,URINE NEGATIVE (NEGATIVE)
[2019-08-25 10:45] LABS: PHENCYCLIDINE SCREEN,URINE NEGATIVE (NEGATIVE)
[2019-08-25] MEDS ORDERED: ZOLPIDEM TARTRATE 10 MG TABLET PO PRN (11:00)
[2019-08-25] MEDS ORDERED: ONDANSETRON HCL 4 MG TABLET PO PRN (13:00)
[2019-08-25] MEDS ORDERED: PETROLATUM,WHITE 28 GM JELLY TP PRN (13:00)
[2019-08-25] MEDS ORDERED: IBUPROFEN 400 MG TABLET PO PRN (13:00)
[2019-08-25] MEDS ORDERED: NICOTINE 14 MG/24 HOUR PATCH TD PRN (13:00)
[2019-08-25] MEDS ORDERED: MAGNESIUM HYDROXIDE SUSPENSION 30 ML UDCUP PO PRN (13:00)
[2019-08-25] MEDS ORDERED: GuaiFENesin/D-METHORPHAN [SUGAR-FREE] 200-20MG/10 ML SYRUP UDCUP PO PRN (13:00)
[2019-08-25] MEDS ORDERED: ACETAMINOPHEN 325 MG TABLET PO PRN (13:00)
[2019-08-25] MEDS ORDERED: LOPERAMIDE HCL 2 MG CAPSULE PO PRN (13:00)
[2019-08-25] MEDS ORDERED: MAG HYDROX/AL HYDROX/SIMETH ES 30 ML SUSPENSION UDCUP PO PRN (13:00)
[2019-08-25] MEDS ORDERED: DOCUSATE SODIUM 100 MG CAPSULE PO PRN (13:00)
[2019-08-25] MEDS ORDERED: ALBUTEROL SULFATE HFA 90 MCG/PUFF 8 GM INHALER IH PRN (13:00)
[2019-08-25] MEDS ORDERED: PNEUMOCOCCAL VACCINE POLYVALENT 0.5 ML VIAL [PPSV23] IM ONE (13:45)
[2019-08-25] MEDS: METOPROLOL TARTRATE 50 MG TABLET PO SCH (17:00)
[2019-08-25] MEDS ORDERED: CloNIDine HCL 0.1 MG TABLET PO SCH (17:00)
[2019-08-25] MEDS: OLANZapine 10 MG TABLET PO SCH (21:00)
[2019-08-25] MEDS: CloNIDine HCL 0.1 MG TABLET PO SCH (21:00)
[2019-08-25] MEDS: TraZODone HCL 100 MG TABLET PO SCH (21:00)
[2019-08-25] MEDS: BENZTROPINE MESYLATE 2 MG TABLET PO SCH (21:00)
[2019-08-26] MEDS: OLANZapine 10 MG TABLET PO SCH ×2 (09:00→20:51)
[2019-08-26] MEDS: BENZTROPINE MESYLATE 2 MG TABLET PO SCH ×2 (09:00→20:51)
[2019-08-26] MEDS: METOPROLOL TARTRATE 50 MG TABLET PO SCH ×2 (10:26→16:01)
[2019-08-26] MEDS: CloNIDine HCL 0.1 MG TABLET PO SCH ×2 (10:28→20:52)
[2019-08-26] MEDS: LORazepam 1 MG TABLET PO PRN (16:54)
[2019-08-26] MEDS: HALOPERIDOL 5 MG TABLET PO PRN (16:54)
[2019-08-26] MEDS: TraZODone HCL 100 MG TABLET PO SCH (20:51)
[2019-08-27] MEDS: METOPROLOL TARTRATE 50 MG TABLET PO SCH ×2 (09:00→17:15)
[2019-08-27] MEDS: BENZTROPINE MESYLATE 2 MG TABLET PO SCH ×2 (09:00→20:32)
[2019-08-27] MEDS: CloNIDine HCL 0.1 MG TABLET PO SCH ×2 (09:00→20:47)
[2019-08-27] MEDS: OLANZapine 10 MG TABLET PO SCH ×2 (09:00→20:32)
[2019-08-27 09:02] VITALS: BP 148/94
[2019-08-27] MEDS: LORazepam 1 MG TABLET PO PRN ×2 (13:23→19:43)
[2019-08-27] MEDS: HALOPERIDOL 5 MG TABLET PO PRN (14:05)
[2019-08-27 18:43] VITALS: BP 149/97
[2019-08-27] MEDS: TraZODone HCL 100 MG TABLET PO SCH ×2 (19:43→20:32)
[2019-08-28] MEDS: METOPROLOL TARTRATE 50 MG TABLET PO SCH ×2 (08:16→16:31)
[2019-08-28] MEDS: OLANZapine 10 MG TABLET PO SCH ×2 (08:16→20:36)
[2019-08-28] MEDS: BENZTROPINE MESYLATE 2 MG TABLET PO SCH ×2 (08:16→20:35)
[2019-08-28] MEDS: CloNIDine HCL 0.1 MG TABLET PO SCH ×2 (08:16→20:35)
[2019-08-28] MEDS: LORazepam 1 MG TABLET PO PRN (08:16)
[2019-08-28] MEDS ORDERED: DiphenhydrAMINE HCL 50 MG/ML VIAL IM ONE (09:15)
[2019-08-28] MEDS ORDERED: LORazepam 2 MG/ML VIAL IM ONE (09:15)
[2019-08-28] MEDS ORDERED: HALOPERIDOL LACTATE 5 MG/ML VIAL IM ONE (09:15)
[2019-08-28 16:28] VITALS: BP 137/73
[2019-08-28] MEDS: TraZODone HCL 100 MG TABLET PO SCH (20:35)
[2019-08-29] MEDS: BENZTROPINE MESYLATE 2 MG TABLET PO SCH ×2 (09:00→10:14)
[2019-08-29] MEDS: METOPROLOL TARTRATE 50 MG TABLET PO SCH ×2 (09:00→10:15)
[2019-08-29] MEDS: CloNIDine HCL 0.1 MG TABLET PO SCH ×2 (09:00→10:14)
[2019-08-29] MEDS: OLANZapine 10 MG TABLET PO SCH ×2 (09:00→10:14)
[2019-08-29] MEDS: LORazepam 1 MG TABLET PO PRN (10:06)
[2019-08-29] MEDS: HALOPERIDOL 5 MG TABLET PO PRN (10:13)
[2019-08-29] MEDS ORDERED: TRAZ-257 PO (15:08)
== END 2019-08-29 16:00 | disposition home or self-care (01) | DRG 885 ==
LOC: EMS 08:04 → 3EC 10:26
PROVIDERS: ADMIT Psychiatry & Neurology Child & Adolescent Psychiatry; ATTEND Psychiatry & Neurology Psychiatry
DX: F25.9 Schizoaffective disorder, unspecified (principal); R45.851 Suicidal ideations; D64.9 Anemia, unspecified; D72.829 Elevated white blood cell count, unspecified; F10.10 Alcohol abuse, uncomplicated; F15.90 Other stimulant use, unspecified, uncomplicated; I10 Essential (primary) hypertension; R45.850 Homicidal ideations; Z78.1 Physical restraint status; S41.119A Laceration without foreign body of unspecified upper arm, initial encounter; S40.819A Abrasion of unspecified upper arm, initial encounter
CPT/HCPCS: 99291; G0480; J1200; J1630; J2060

== ENCOUNTER 2019-12-02 00:25 | Inpatient (IN) | payer MEDICARE, MEDICAID ==
[~2019-12-02] VITALS: Ht 180.3 cm; Wt 82.0 kg
[~2019-12-02 00:25] MED LIST changes: -BENZ2TAB10 PO; -CLON0.1T83 PO; -DIPH50 PO; -FLUD25I IM; +HALO10 PO; -METO50 PO; -OLAN10TA3 PO; -TRAZ-252 PO
[2019-12-02 01:20] LABS: BASOPHILS % (AUTO) 0.5 % (0.0-2.0); EOSINOPHILS % (AUTO) 2.5 % (1.0-6.0); HEMOGLOBIN 12.1 g/dL (13.5-17.5); LYMPHOCYTES # (AUTO) 1.4 K/uL (1.0-4.8); LYMPHOCYTES % (AUTO) 25.4 % (22.0-44.0); MEAN CORPUSCULAR HGB CONC 33.5 G/dL (31.0-37.0); MEAN CORPUSCULAR VOLUME 87 fL (80-100); MONOCYTES # (AUTO) 0.9 K/uL (0.1-1.0); MONOCYTES % (AUTO) 16.2 % (2.0-9.0); NEUTROPHILS # (AUTO) 3.1 K/uL (1.8-7.7); NEUTROPHILS % (AUTO) 55.4 % (40.0-70.0); PLATELET COUNT (AUTO) 264 K/uL (150-450); RED BLOOD CELL COUNT(AUTO) 4.16 MIL/uL (4.50-5.90); RED CELL DISTRIBUTION WIDTH 14.3 % (11.5-14.5)
[2019-12-02 01:30] LABS: ANION GAP 6 mmol/L (8-16); CALCIUM, TOTAL 8.8 mg/dL (8.8-10.5); CARBON DIOXIDE 27 mmol/L (22-29); CHLORIDE 100 mmol/L (98-107); CREATININE 0.62 mg/dL (0.60-1.30); GLOMERULAR FILTR. RATE CALC > 60 mL/min (>60); GLUCOSE,RANDOM 101 mg/dL (70-110); POTASSIUM 3.6 mmol/L (3.5-5.1); SODIUM SERUM 133 mmol/L (136-145); UREA NITROGEN, BLOOD 13 mg/dL (7-18)
[2019-12-02 01:36] LABS: ALANINE AMINOTRANSFERASE 459 U/L (12-78); ALBUMIN 3.2 g/dL (3.4-5.0); ALKALINE PHOSPHATASE 211 U/L (46-116); ASPARTATE AMINOTRANSFERASE 428 U/L (15-37); BILIRUBIN,TOTAL 1.4 mg/dL (0.1-1.0); TOTAL PROTEIN, SERUM 6.4 g/dL (6.4-8.2)
[2019-12-02] MEDS ORDERED: HALOPERIDOL 5 MG TABLET PO PRN (03:00)
[2019-12-02] MEDS ORDERED: ZOLPIDEM TARTRATE 10 MG TABLET PO PRN (03:00)
[2019-12-02] MEDS ORDERED: DiphenhydrAMINE HCL 50 MG/ML VIAL IM ONE (06:00)
[2019-12-02] MEDS ORDERED: LORazepam 2 MG/ML VIAL IM ONE (06:00)
[2019-12-02] MEDS ORDERED: HALOPERIDOL LACTATE 5 MG/ML VIAL IM ONE (06:00)
[2019-12-02 16:10] LABS: AMPHET/METH SCREEN,URINE POSITIVE (NEGATIVE); BARBITURATE SCREEN, URINE NEGATIVE (NEGATIVE); BENZODIAZEPINES SCREEN,URINE NEGATIVE (NEGATIVE); CANNABINOID SCREEN,URINE POSITIVE (NEGATIVE); COCAINE SCREEN,URINE NEGATIVE (NEGATIVE); METHADONE SCREEN, URINE NEGATIVE (NEGATIVE); OPIATE SCREEN,URINE NEGATIVE (NEGATIVE)
[2019-12-02 16:13] LABS: APPEARANCE,URINE CLOUDY (CLEAR); GLUCOSE, URINE (UA) NEGATIVE (NEGATIVE); KETONES,URINE NEGATIVE (NEGATIVE); LEUKOCYTE ESTERASE ,URINE SMALL (NEGATIVE); NITRATE,URINE POSITIVE (NEGATIVE); OCCULT BLOOD,URINE NEGATIVE (NEGATIVE); PH,URINE 5.5 (5.0-8.0); PROTEIN,URINE POS 1+ (NEGATIVE)
[2019-12-02 16:14] LABS: PHENCYCLIDINE SCREEN,URINE NEGATIVE (NEGATIVE)
[2019-12-02 16:25] LABS: BILIRUBIN,URINE PRELIM. POSITIVE (NEGATIVE)
[2019-12-02 16:35] LABS: BACTERIA,URINE Moderate /HPF (None Seen); RBC,URINE None Seen /HPF (0-2); WBC,URINE 0-2 /HPF (0-5)
[2019-12-02 16:36] LABS: CALCIUM OXALATE CRYSTALS,UR Few /LPF (None Seen); MUCUS,URINE Many LPF (None Seen); SQUAMOUS EPITHELIAL CELL,UR Few /LPF (None Seen)
[2019-12-02 20:02] VITALS: BP 126/81
[2019-12-02] MEDS ORDERED: PNEUMOCOCCAL VACCINE POLYVALENT 0.5 ML VIAL [PPSV23] IM ONE (21:45)
[2019-12-03 08:34] VITALS: BP 114/65
[2019-12-03] MEDS ORDERED: DiphenhydrAMINE HCL 50 MG/ML VIAL ONE (12:04)
[2019-12-03] MEDS ORDERED: HALOPERIDOL LACTATE 5 MG/ML VIAL ONE (12:04)
[2019-12-03] MEDS ORDERED: LORazepam 2 MG/ML VIAL IM ONE (12:15)
[2019-12-03] MEDS ORDERED: DiphenhydrAMINE HCL 50 MG/ML VIAL IM ONE (12:15)
[2019-12-03] MEDS ORDERED: HALOPERIDOL LACTATE 5 MG/ML VIAL IM ONE (12:15)
[2019-12-03 16:03] VITALS: BP 130/73
[2019-12-03] MEDS: LITHIUM CARBONATE 300 MG CAPSULE PO SCH ×2 (17:00→18:32)
[2019-12-03] MEDS: DIVALPROEX SODIUM 500 MG DR TABLET PO SCH ×2 (17:00→18:33)
[2019-12-03] MEDS: OLANZapine 7.5 MG TABLET PO SCH (20:53)
[2019-12-04 05:32] VITALS: BP 138/79
[2019-12-04 08:15] VITALS: BP 125/71
[2019-12-04] MEDS: LITHIUM CARBONATE 300 MG CAPSULE PO SCH ×2 (08:26→16:31)
[2019-12-04] MEDS: DIVALPROEX SODIUM 500 MG DR TABLET PO SCH ×2 (08:27→16:31)
[2019-12-04] MEDS ORDERED: ALBUTEROL SULFATE HFA 90 MCG/PUFF 8 GM INHALER IH PRN (08:45)
[2019-12-04] MEDS ORDERED: LOPERAMIDE HCL 2 MG CAPSULE PO PRN (08:45)
[2019-12-04] MEDS ORDERED: DOCUSATE SODIUM 100 MG CAPSULE PO PRN (08:45)
[2019-12-04] MEDS ORDERED: ONDANSETRON HCL 4 MG TABLET PO PRN (08:45)
[2019-12-04] MEDS ORDERED: ACETAMINOPHEN 325 MG TABLET PO PRN (08:45)
[2019-12-04] MEDS ORDERED: CloNIDine HCL 0.1 MG TABLET PO PRN (08:45)
[2019-12-04] MEDS ORDERED: BENZOCAINE/MENTHOL LOZENGE PO PRN (08:45)
[2019-12-04] MEDS ORDERED: PETROLATUM,WHITE 28 GM JELLY TP PRN (08:45)
[2019-12-04] MEDS ORDERED: BACITRACIN 28 GM OINTMENT TP PRN (08:45)
[2019-12-04] MEDS ORDERED: MAG HYDROX/AL HYDROX/SIMETH ES 30 ML SUSPENSION UDCUP PO PRN (08:45)
[2019-12-04] MEDS ORDERED: MAGNESIUM HYDROXIDE SUSPENSION 30 ML UDCUP PO PRN (08:45)
[2019-12-04] MEDS ORDERED: IBUPROFEN 600 MG TABLET PO PRN (08:45)
[2019-12-04] MEDS ORDERED: OMEPRAZOLE 20 MG CAPSULE PO PRN (08:45)
[2019-12-04] MEDS: LORazepam 2 MG TABLET PO PRN ×2 (10:53→16:24)
[2019-12-04] MEDS: NICOTINE 21 MG/24 HOUR PATCH TD SCH (10:53)
[2019-12-04 20:16] VITALS: BP 154/86
[2019-12-04] MEDS: OLANZapine 7.5 MG TABLET PO SCH (20:31)
[2019-12-04 21:11] VITALS: BP 142/84
[2019-12-05] MEDS: DIVALPROEX SODIUM 500 MG DR TABLET PO SCH ×2 (08:04→16:36)
[2019-12-05] MEDS: LITHIUM CARBONATE 300 MG CAPSULE PO SCH ×2 (08:04→16:36)
[2019-12-05] MEDS: NICOTINE 21 MG/24 HOUR PATCH TD SCH (08:09)
[2019-12-05 08:21] LABS: ALANINE AMINOTRANSFERASE 487 U/L (12-78); ALKALINE PHOSPHATASE 231 U/L (46-116); ANION GAP 5 mmol/L (8-16); ASPARTATE AMINOTRANSFERASE 551 U/L (15-37); BILIRUBIN,TOTAL 1.1 mg/dL (0.1-1.0); CALCIUM, TOTAL 8.4 mg/dL (8.8-10.5); CARBON DIOXIDE 26 mmol/L (22-29); CHLORIDE 104 mmol/L (98-107); CHOL/HDL RATIO 3.5 (4.2-7.3); CHOLESTEROL 116 mg/dL (131-200); CREATININE 0.53 mg/dL (0.60-1.30); GLOMERULAR FILTR. RATE CALC > 60 mL/min (>60); GLUCOSE,RANDOM 80 mg/dL (70-110); HDL CHOLESTEROL 33 mg/dL (40-60); LDL CHOL (CALC.) 71 mg/dL (0-130); POTASSIUM 4.1 mmol/L (3.5-5.1); SODIUM SERUM 135 mmol/L (136-145); TOTAL PROTEIN, SERUM 6.5 g/dL (6.4-8.2); TRIGLYCERIDES 62 mg/dL (15-150); UREA NITROGEN, BLOOD 6 mg/dL (7-18)
[2019-12-05 16:03] VITALS: BP 162/111
[2019-12-05] MEDS: METOPROLOL TARTRATE 25 MG TABLET PO SCH (17:15)
[2019-12-05 19:38] VITALS: BP 151/89
[2019-12-05] MEDS: OLANZapine 7.5 MG TABLET PO SCH (20:36)
[2019-12-06 00:03] VITALS: BP 149/88
[2019-12-06] MEDS: METOPROLOL TARTRATE 25 MG TABLET PO SCH ×2 (08:14→16:31)
[2019-12-06] MEDS: DIVALPROEX SODIUM 500 MG DR TABLET PO SCH ×2 (08:14→16:31)
[2019-12-06] MEDS: NICOTINE 21 MG/24 HOUR PATCH TD SCH (08:14)
[2019-12-06] MEDS: LITHIUM CARBONATE 300 MG CAPSULE PO SCH ×2 (08:14→16:31)
[2019-12-06 08:44] VITALS: BP 133/83
[2019-12-06] MEDS: LORazepam 2 MG TABLET PO PRN (16:36)
[2019-12-06] MEDS: OLANZapine 7.5 MG TABLET PO SCH (20:44)
[2019-12-07] MEDS: METOPROLOL TARTRATE 25 MG TABLET PO SCH ×2 (09:10→16:37)
[2019-12-07] MEDS: LITHIUM CARBONATE 300 MG CAPSULE PO SCH ×2 (09:10→16:37)
[2019-12-07] MEDS: DIVALPROEX SODIUM 500 MG DR TABLET PO SCH ×2 (09:10→16:37)
[2019-12-07] MEDS: NICOTINE 21 MG/24 HOUR PATCH TD SCH (09:10)
[2019-12-07] MEDS: LORazepam 2 MG TABLET PO PRN (13:31)
[2019-12-07 16:06] VITALS: BP 142/89
[2019-12-07] MEDS: OLANZapine 7.5 MG TABLET PO SCH (20:44)
[2019-12-08 06:48] VITALS: BP 130/81
[2019-12-08] MEDS: DIVALPROEX SODIUM 500 MG DR TABLET PO SCH ×2 (09:00→16:32)
[2019-12-08] MEDS: NICOTINE 21 MG/24 HOUR PATCH TD SCH (09:00)
[2019-12-08] MEDS: METOPROLOL TARTRATE 25 MG TABLET PO SCH ×2 (09:00→16:33)
[2019-12-08] MEDS: LITHIUM CARBONATE 300 MG CAPSULE PO SCH ×2 (09:00→16:33)
[2019-12-08 16:05] VITALS: BP 138/94
[2019-12-08] MEDS: OLANZapine 7.5 MG TABLET PO SCH (20:42)
[2019-12-09 00:46] VITALS: BP 134/88
[2019-12-09 08:12] VITALS: BP 139/68
[2019-12-09] MEDS: METOPROLOL TARTRATE 25 MG TABLET PO SCH ×2 (08:14→16:35)
[2019-12-09] MEDS: DIVALPROEX SODIUM 500 MG DR TABLET PO SCH ×2 (08:14→16:35)
[2019-12-09] MEDS: LITHIUM CARBONATE 300 MG CAPSULE PO SCH ×2 (08:15→16:35)
[2019-12-09] MEDS: NICOTINE 21 MG/24 HOUR PATCH TD SCH (08:40)
[2019-12-09 16:04] VITALS: BP 135/84
[2019-12-09] MEDS: LORazepam 2 MG TABLET PO PRN (19:27)
[2019-12-09] MEDS: OLANZapine 7.5 MG TABLET PO SCH (20:29)
[2019-12-10 08:05] VITALS: BP 134/68
[2019-12-10] MEDS: METOPROLOL TARTRATE 25 MG TABLET PO SCH ×2 (09:12→16:31)
[2019-12-10] MEDS: LITHIUM CARBONATE 300 MG CAPSULE PO SCH ×2 (09:12→16:31)
[2019-12-10] MEDS: DIVALPROEX SODIUM 500 MG DR TABLET PO SCH ×2 (09:12→16:31)
[2019-12-10] MEDS: NICOTINE 21 MG/24 HOUR PATCH TD SCH (09:13)
[2019-12-10] MEDS: LORazepam 2 MG TABLET PO PRN (13:12)
[2019-12-10 16:05] VITALS: BP 140/76
[2019-12-10] MEDS: OLANZapine 7.5 MG TABLET PO SCH (20:29)
[2019-12-11 05:43] VITALS: BP 132/75
[2019-12-11 08:07] VITALS: BP 137/88
[2019-12-11] MEDS: METOPROLOL TARTRATE 25 MG TABLET PO SCH ×2 (08:12→16:55)
[2019-12-11] MEDS: LITHIUM CARBONATE 300 MG CAPSULE PO SCH ×2 (08:12→16:55)
[2019-12-11] MEDS: NICOTINE 21 MG/24 HOUR PATCH TD SCH (08:13)
[2019-12-11] MEDS: DIVALPROEX SODIUM 500 MG DR TABLET PO SCH ×2 (08:13→16:55)
[2019-12-11 16:03] VITALS: BP 139/81
[2019-12-11] MEDS: LORazepam 2 MG TABLET PO PRN (20:27)
[2019-12-11] MEDS: OLANZapine 7.5 MG TABLET PO SCH (20:28)
[2019-12-12 08:09] VITALS: BP 137/89
[2019-12-12] MEDS: DIVALPROEX SODIUM 500 MG DR TABLET PO SCH ×2 (08:27→16:29)
[2019-12-12] MEDS: LITHIUM CARBONATE 300 MG CAPSULE PO SCH ×2 (08:28→16:29)
[2019-12-12] MEDS: METOPROLOL TARTRATE 25 MG TABLET PO SCH ×2 (08:28→16:29)
[2019-12-12] MEDS: NICOTINE 21 MG/24 HOUR PATCH TD SCH (08:32)
[2019-12-12 16:47] VITALS: BP 136/75
[2019-12-12] MEDS: LORazepam 2 MG TABLET PO PRN (18:50)
[2019-12-12] MEDS: OLANZapine 7.5 MG TABLET PO SCH (20:33)
[2019-12-13 06:21] VITALS: BP 119/75
[2019-12-13] MEDS: DIVALPROEX SODIUM 500 MG DR TABLET PO SCH ×2 (08:07→16:09)
[2019-12-13] MEDS: METOPROLOL TARTRATE 25 MG TABLET PO SCH ×2 (08:07→16:09)
[2019-12-13] MEDS: LITHIUM CARBONATE 300 MG CAPSULE PO SCH ×2 (08:07→16:09)
[2019-12-13] MEDS: NICOTINE 21 MG/24 HOUR PATCH TD SCH (08:08)
[2019-12-13 08:13] VITALS: BP 121/70
[2019-12-13 16:03] VITALS: BP 135/84
[2019-12-13] MEDS: LORazepam 2 MG TABLET PO PRN (16:12)
[2019-12-13] MEDS: OLANZapine 7.5 MG TABLET PO SCH ×2 (19:25→20:08)
[2019-12-14 00:59] VITALS: BP 102/63
[2019-12-14 08:08] VITALS: BP 118/72
[2019-12-14 08:23] LABS: LITHIUM 0.27 mmol/L (0.60-1.20)
[2019-12-14 08:51] LABS: ALANINE AMINOTRANSFERASE 1335 U/L (12-78); ALBUMIN 2.8 g/dL (3.4-5.0); ALKALINE PHOSPHATASE 175 U/L (46-116); ANION GAP 5 mmol/L (8-16); BILIRUBIN,TOTAL 1.9 mg/dL (0.1-1.0); CARBON DIOXIDE 27 mmol/L (22-29); CHLORIDE 100 mmol/L (98-107); CREATININE 0.75 mg/dL (0.60-1.30); GLOMERULAR FILTR. RATE CALC > 60 mL/min (>60); GLUCOSE,RANDOM 83 mg/dL (70-110); POTASSIUM 4.3 mmol/L (3.5-5.1); SODIUM SERUM 132 mmol/L (136-145); TOTAL PROTEIN, SERUM 6.2 g/dL (6.4-8.2); UREA NITROGEN, BLOOD 9 mg/dL (7-18); VALPROIC ACID 62 mcg/mL (50-100)
[2019-12-14 08:54] LABS: ASPARTATE AMINOTRANSFERASE 1467 U/L (15-37)
[2019-12-14] MEDS: NICOTINE 21 MG/24 HOUR PATCH TD SCH (08:58)
[2019-12-14] MEDS: DIVALPROEX SODIUM 500 MG DR TABLET PO SCH ×2 (08:58→16:23)
[2019-12-14] MEDS: METOPROLOL TARTRATE 25 MG TABLET PO SCH ×2 (08:58→16:23)
[2019-12-14] MEDS: LITHIUM CARBONATE 300 MG CAPSULE PO SCH ×2 (08:58→16:23)
[2019-12-14] MEDS: LORazepam 2 MG TABLET PO PRN ×2 (13:45→19:45)
[2019-12-14 16:14] VITALS: BP 140/89
[2019-12-14] MEDS: OLANZapine 7.5 MG TABLET PO SCH (20:28)
[2019-12-15 06:41] VITALS: BP 126/73
[2019-12-15 08:28] VITALS: BP 135/82
[2019-12-15] MEDS: DIVALPROEX SODIUM 500 MG DR TABLET PO SCH ×2 (08:53→16:30)
[2019-12-15] MEDS: LITHIUM CARBONATE 300 MG CAPSULE PO SCH ×2 (08:53→16:30)
[2019-12-15] MEDS: METOPROLOL TARTRATE 25 MG TABLET PO SCH ×2 (08:53→16:30)
[2019-12-15] MEDS: NICOTINE 21 MG/24 HOUR PATCH TD SCH (09:11)
[2019-12-15] MEDS: LORazepam 2 MG TABLET PO PRN ×2 (13:27→20:05)
[2019-12-15 16:27] VITALS: BP_SYST 109; BP_SYST 116; BP_DIAS 69
[2019-12-15] MEDS: OLANZapine 7.5 MG TABLET PO SCH (20:34)
[2019-12-16 06:48] VITALS: BP 128/78
[2019-12-16 08:27] VITALS: BP 128/76
[2019-12-16] MEDS: NICOTINE 21 MG/24 HOUR PATCH TD SCH (08:58)
[2019-12-16] MEDS: DIVALPROEX SODIUM 500 MG DR TABLET PO SCH ×2 (08:58→16:28)
[2019-12-16] MEDS: METOPROLOL TARTRATE 25 MG TABLET PO SCH ×2 (08:58→16:28)
[2019-12-16] MEDS: LITHIUM CARBONATE 300 MG CAPSULE PO SCH ×2 (08:58→16:28)
[2019-12-16] MEDS: LORazepam 2 MG TABLET PO PRN ×2 (13:33→20:07)
[2019-12-16 16:03] VITALS: BP 140/83
[2019-12-16] MEDS: OLANZapine 7.5 MG TABLET PO SCH (20:08)
[2019-12-17 05:44] VITALS: BP 135/76
[2019-12-17] MEDS: LITHIUM CARBONATE 300 MG CAPSULE PO SCH ×2 (08:38→16:04)
[2019-12-17] MEDS: NICOTINE 21 MG/24 HOUR PATCH TD SCH (08:38)
[2019-12-17] MEDS: METOPROLOL TARTRATE 25 MG TABLET PO SCH ×2 (08:39→16:04)
[2019-12-17] MEDS: DIVALPROEX SODIUM 500 MG DR TABLET PO SCH ×2 (08:39→16:04)
[2019-12-17 09:06] VITALS: BP 146/88
[2019-12-17] MEDS: LORazepam 2 MG TABLET PO PRN ×2 (16:04→20:49)
[2019-12-17 16:30] VITALS: BP 154/96
[2019-12-17] MEDS: OLANZapine 7.5 MG TABLET PO SCH (20:15)
[2019-12-18 05:53] VITALS: BP 130/72
[2019-12-18 07:44] LABS: BASOPHILS % (AUTO) 0.4 % (0.0-2.0); EOSINOPHILS % (AUTO) 7.1 % (1.0-6.0); HEMATOCRIT 37.8 % (41-53); LYMPHOCYTES # (AUTO) 1.8 K/uL (1.0-4.8); LYMPHOCYTES % (AUTO) 32.1 % (22.0-44.0); MEAN CORPUSCULAR HGB CONC 34.4 G/dL (31.0-37.0); MEAN CORPUSCULAR VOLUME 87 fL (80-100); MONOCYTES # (AUTO) 0.8 K/uL (0.1-1.0); MONOCYTES % (AUTO) 14.4 % (2.0-9.0); NEUTROPHILS # (AUTO) 2.6 K/uL (1.8-7.7); PLATELET COUNT (AUTO) 158 K/uL (150-450); RED BLOOD CELL COUNT(AUTO) 4.32 MIL/uL (4.50-5.90); RED CELL DISTRIBUTION WIDTH 15.3 % (11.5-14.5)
[2019-12-18] MEDS: NICOTINE 21 MG/24 HOUR PATCH TD SCH (08:14)
[2019-12-18] MEDS: DIVALPROEX SODIUM 500 MG DR TABLET PO SCH ×2 (08:14→16:51)
[2019-12-18] MEDS: LITHIUM CARBONATE 300 MG CAPSULE PO SCH ×2 (08:14→16:51)
[2019-12-18 08:25] LABS: ALANINE AMINOTRANSFERASE 1566 U/L (12-78); ALBUMIN 2.8 g/dL (3.4-5.0); ALKALINE PHOSPHATASE 154 U/L (46-116); ANION GAP 7 mmol/L (8-16); BILIRUBIN,TOTAL 3.5 mg/dL (0.1-1.0); CARBON DIOXIDE 28 mmol/L (22-29); CHLORIDE 102 mmol/L (98-107); CREATININE 0.65 mg/dL (0.60-1.30); GLOMERULAR FILTR. RATE CALC > 60 mL/min (>60); GLUCOSE,RANDOM 75 mg/dL (70-110); PHOSPHORUS 3.8 mg/dL (2.5-4.9); POTASSIUM 4.5 mmol/L (3.5-5.1); SODIUM SERUM 137 mmol/L (136-145); TOTAL PROTEIN, SERUM 6.5 g/dL (6.4-8.2); UREA NITROGEN, BLOOD 7 mg/dL (7-18)
[2019-12-18 08:26] LABS: ASPARTATE AMINOTRANSFERASE 1669 U/L (15-37)
[2019-12-18] MEDS: METOPROLOL TARTRATE 25 MG TABLET PO SCH ×2 (10:54→16:51)
[2019-12-18] MEDS: LORazepam 2 MG TABLET PO PRN (15:50)
[2019-12-18 17:02] VITALS: BP 150/90
[2019-12-18 20:26] VITALS: BP 132/78
[2019-12-18] MEDS: OLANZapine 7.5 MG TABLET PO SCH (20:29)
[2019-12-19 00:38] VITALS: BP 130/76
[2019-12-19] MEDS: LITHIUM CARBONATE 300 MG CAPSULE PO SCH (08:23)
[2019-12-19] MEDS: METOPROLOL TARTRATE 25 MG TABLET PO SCH (08:23)
[2019-12-19] MEDS: NICOTINE 21 MG/24 HOUR PATCH TD SCH (08:24)
== END 2019-12-19 13:55 | disposition left against medical advice (07) | DRG 885 ==
LOC: EMS 00:25 → B2X 18:24
PROVIDERS: ADMIT Psychiatry & Neurology Psychiatry; ATTEND Psychiatry & Neurology Psychiatry
DX: F25.9 Schizoaffective disorder, unspecified (principal); B19.10 Unspecified viral hepatitis B without hepatic coma; R45.851 Suicidal ideations; I10 Essential (primary) hypertension; F17.210 Nicotine dependence, cigarettes, uncomplicated; R74.01 Elevation of levels of liver transaminase levels; F41.9 Anxiety disorder, unspecified; K59.00 Constipation, unspecified; G47.00 Insomnia, unspecified; F19.10 Other psychoactive substance abuse, uncomplicated; Z20.828 Contact with and (suspected) exposure to other viral communicable diseases; Z91.14 Patient's other noncompliance with medication regimen; Z88.0 Allergy status to penicillin; Z88.2 Allergy status to sulfonamides; Z88.8 Allergy status to other drugs, medicaments and biological substances; Z59.0 Homelessness; Z79.899 Other long term (current) drug therapy
CPT/HCPCS: 76705; 80074; 83735; 84100; 87086; 87426; G0480; J1200; J1630; J2060

== ENCOUNTER 2021-10-08 15:33 | Inpatient (IN) | payer MEDICARE ==
[~2021-10-08] VITALS: Ht 188 cm; Wt 118.7 kg
[~2021-10-08 15:33] MED LIST changes: -HALO10 PO; +HALO10TA21 PO
[2021-10-08] MEDS ORDERED: SODIUM CHLORIDE 0.9% 1,000 ML IV ONE ×3 (16:00→17:30)
[2021-10-08] MEDS ORDERED: ACETAMINOPHEN 1000 MG/ISO-OSM 100 ML IV ONE (16:00)
[2021-10-08 16:21] LABS: BASOPHILS % (AUTO) 0.5 % (0.0-2.0); EOSINOPHILS % (AUTO) 1.4 % (1.0-6.0); HEMATOCRIT 32.6 % (41-53); HEMOGLOBIN 11.3 g/dL (13.5-17.5); LYMPHOCYTES # (AUTO) 2.1 K/uL (1.0-4.8); LYMPHOCYTES % (AUTO) 38.2 % (22.0-44.0); MEAN CORPUSCULAR HEMOGLOBIN 29.7 pg (26.0-34.0); MEAN CORPUSCULAR HGB CONC 34.7 G/dL (31.0-37.0); MEAN CORPUSCULAR VOLUME 86 fL (80-100); MONOCYTES # (AUTO) 0.7 K/uL (0.1-1.0); MONOCYTES % (AUTO) 12.7 % (2.0-9.0); NEUTROPHILS # (AUTO) 2.6 K/uL (1.8-7.7); NEUTROPHILS % (AUTO) 47.2 % (40.0-70.0); PLATELET COUNT (AUTO) 212 K/uL (150-450); RED BLOOD CELL COUNT(AUTO) 3.81 MIL/uL (4.50-5.90); RED CELL DISTRIBUTION WIDTH 12.7 % (11.5-14.5)
[2021-10-08 16:27] LABS: COVID AG,FIA SOURCE NASOPHARYNGEAL
[2021-10-08 16:31] LABS: INR 1.1 (0.9-1.1); PROTHROMBIN TIME 11.9 SEC (9.4-11.6)
[2021-10-08 16:39] LABS: AMMONIA 101 umol/L (11-32)
[2021-10-08 16:57] LABS: ALANINE AMINOTRANSFERASE 15 U/L (12-78); ALBUMIN 3.1 g/dL (3.4-5.0); ALKALINE PHOSPHATASE 47 U/L (46-116); ANION GAP 10 mmol/L (8-16); ASPARTATE AMINOTRANSFERASE 23 U/L (15-37); BILIRUBIN,TOTAL 0.5 mg/dL (0.1-1.0); CALCIUM, TOTAL 8.2 mg/dL (8.8-10.5); CARBON DIOXIDE 23 mmol/L (22-29); CHLORIDE 90 mmol/L (98-107); CREATINE KINASE, TOTAL ONLY 536 U/L (39-308); CREATININE 1.12 mg/dL (0.60-1.30); GLUCOSE,RANDOM 114 mg/dL (70-110); POTASSIUM 3.8 mmol/L (3.5-5.1); TOTAL PROTEIN, SERUM 5.9 g/dL (6.4-8.2); UREA NITROGEN, BLOOD 12 mg/dL (7-18)
[2021-10-08 16:58] LABS: GLOMERULAR FILTR. RATE CALC > 60 mL/min (>60); LACTIC ACID 3.7 mmol/L (0.4-2.0); SODIUM SERUM 123 mmol/L (136-145)
[2021-10-08] MEDS ORDERED: CefTRIAXone 1 GM/DEXTROSE 50 ML IV ONE (17:30)
[2021-10-08] MEDS ORDERED: SODIUM CHLORIDE 0.9% 500 ML IV ONE (17:30)
[2021-10-08] MEDS ORDERED: ONDANSETRON HCL 4 MG/2 ML VIAL IVP PRN (17:45)
[2021-10-08] MEDS ORDERED: LORazepam 2 MG/ML VIAL IVP PRN (17:45)
[2021-10-08] MEDS ORDERED: SODIUM CHLORIDE 0.9% 1,000 ML IV SCH (17:45)
[2021-10-08 17:47] LABS: APPEARANCE,URINE CLEAR (CLEAR); BILIRUBIN,URINE NEGATIVE (NEGATIVE); GLUCOSE, URINE (UA) NEGATIVE (NEGATIVE); KETONES,URINE NEGATIVE (NEGATIVE); LEUKOCYTE ESTERASE ,URINE NEGATIVE (NEGATIVE); NITRATE,URINE NEGATIVE (NEGATIVE); OCCULT BLOOD,URINE NEGATIVE (NEGATIVE); PH,URINE 7.5 (5.0-8.0); PROTEIN,URINE NEGATIVE (NEGATIVE); SPECIFIC GRAVITIY, URINE 1.012 (1.003-1.030); UROBILINOGEN,URINE <=1.0 mg/dL (<=1.0)
[2021-10-08 17:53] LABS: AMPHET/METH SCREEN,URINE NEGATIVE (NEGATIVE); BARBITURATE SCREEN, URINE NEGATIVE (NEGATIVE); BENZODIAZEPINES SCREEN,URINE NEGATIVE (NEGATIVE); CANNABINOID SCREEN,URINE NEGATIVE (NEGATIVE); COCAINE SCREEN,URINE NEGATIVE (NEGATIVE); METHADONE SCREEN, URINE NEGATIVE (NEGATIVE); OPIATE SCREEN,URINE NEGATIVE (NEGATIVE); PHENCYCLIDINE SCREEN,URINE NEGATIVE (NEGATIVE)
[2021-10-08] MEDS: LACTULOSE 20 GM/30 ML SOLUTION UDCUP PO SCH ×2 (18:01→23:06)
[2021-10-08 20:39] VITALS: BP 105/71
[2021-10-08] MEDS: FAMOTIDINE 20 MG TABLET PO SCH (22:18)
[2021-10-08] MEDS: ACETAMINOPHEN 325 MG TABLET PO PRN (22:18)
[2021-10-09 00:19] VITALS: BP 117/78
[2021-10-09 05:07] VITALS: BP 127/83
[2021-10-09 07:57] LABS: ANION GAP 10 mmol/L (8-16); CALCIUM, TOTAL 8.4 mg/dL (8.8-10.5); CARBON DIOXIDE 26 mmol/L (22-29); CHLORIDE 99 mmol/L (98-107); CREATININE 0.66 mg/dL (0.60-1.30); GLUCOSE,RANDOM 87 mg/dL (70-110); POTASSIUM 3.4 mmol/L (3.5-5.1); SODIUM SERUM 135 mmol/L (136-145); UREA NITROGEN, BLOOD 7 mg/dL (7-18)
[2021-10-09 07:59] LABS: GLOMERULAR FILTR. RATE CALC > 60 mL/min (>60)
[2021-10-09 08:00] LABS: CREATINE KINASE, TOTAL ONLY 2318 U/L (39-308)
[2021-10-09 08:16] VITALS: BP 108/57
[2021-10-09] MEDS: FAMOTIDINE 20 MG TABLET PO SCH ×2 (08:18→22:42)
[2021-10-09] MEDS: LACTULOSE 20 GM/30 ML SOLUTION UDCUP PO SCH ×3 (08:18→23:02)
[2021-10-09] MEDS ORDERED: POTASSIUM CHLORIDE 20 MEQ ER TABLET PO ONE (09:00)
[2021-10-09] MEDS: SODIUM CHLORIDE 0.45% 1,000 ML IV SCH ×3 (09:13→22:41)
[2021-10-09 12:16] VITALS: BP 124/84
[2021-10-09] MEDS: DIVALPROEX SODIUM 500 MG DR TABLET PO SCH ×2 (15:59→22:42)
[2021-10-09 16:03] VITALS: BP 127/83
[2021-10-09 20:11] VITALS: BP 136/89
[2021-10-09] MEDS: OLANZapine 10 MG TABLET PO SCH (22:42)
[2021-10-09] MEDS: ACETAMINOPHEN 325 MG TABLET PO PRN (23:15)
[2021-10-10 00:18] VITALS: BP 135/86
[2021-10-10 04:22] VITALS: BP 125/79
[2021-10-10 07:34] LABS: ANION GAP 9 mmol/L (8-16); CARBON DIOXIDE 24 mmol/L (22-29); CHLORIDE 100 mmol/L (98-107); CREATININE 0.67 mg/dL (0.60-1.30); GLUCOSE,RANDOM 127 mg/dL (70-110); POTASSIUM 3.4 mmol/L (3.5-5.1); SODIUM SERUM 133 mmol/L (136-145); UREA NITROGEN, BLOOD 6 mg/dL (7-18)
[2021-10-10 07:35] LABS: GLOMERULAR FILTR. RATE CALC > 60 mL/min (>60)
[2021-10-10 07:36] LABS: CREATINE KINASE, TOTAL ONLY 1063 U/L (39-308)
[2021-10-10 08:28] VITALS: BP 135/88
[2021-10-10] MEDS: LACTULOSE 20 GM/30 ML SOLUTION UDCUP PO SCH ×2 (08:43→17:13)
[2021-10-10] MEDS: SODIUM CHLORIDE 0.45% 1,000 ML IV SCH ×2 (08:44→20:04)
[2021-10-10] MEDS: DIVALPROEX SODIUM 500 MG DR TABLET PO SCH ×2 (08:44→20:13)
[2021-10-10] MEDS: FAMOTIDINE 20 MG TABLET PO SCH ×2 (08:44→20:14)
[2021-10-10 11:47] VITALS: BP 143/84
[2021-10-10] MEDS ORDERED: POTASSIUM CHLORIDE 20 MEQ ER TABLET PO ONE (12:00)
[2021-10-10 16:18] VITALS: BP 136/92
[2021-10-10 20:06] VITALS: BP 159/108
[2021-10-10] MEDS: OLANZapine 10 MG TABLET PO SCH (20:14)
[2021-10-11] VITALS: BP 153/98
[2021-10-11] MEDS: LACTULOSE 20 GM/30 ML SOLUTION UDCUP PO SCH ×2 (00:20→08:21)
[2021-10-11] MEDS: ACETAMINOPHEN 325 MG TABLET PO PRN (03:50)
[2021-10-11 05:16] VITALS: BP 143/102
[2021-10-11] MEDS: SODIUM CHLORIDE 0.45% 1,000 ML IV SCH (06:37)
[2021-10-11 07:09] LABS: ANION GAP 8 mmol/L (8-16); CALCIUM, TOTAL 8.7 mg/dL (8.8-10.5); CARBON DIOXIDE 26 mmol/L (22-29); CHLORIDE 100 mmol/L (98-107); CREATINE KINASE, TOTAL ONLY 717 U/L (39-308); GLUCOSE,RANDOM 103 mg/dL (70-110); SODIUM SERUM 134 mmol/L (136-145); UREA NITROGEN, BLOOD 5 mg/dL (7-18)
[2021-10-11 07:10] LABS: GLOMERULAR FILTR. RATE CALC > 60 mL/min (>60)
[2021-10-11 07:48] VITALS: BP 150/74
[2021-10-11] MEDS: FAMOTIDINE 20 MG TABLET PO SCH (08:21)
[2021-10-11] MEDS: DIVALPROEX SODIUM 500 MG DR TABLET PO SCH (08:21)
[2021-10-11 11:30] VITALS: BP 141/99
[2021-10-11] MEDS ORDERED: OLAN20TA2 PO (12:49)
[2021-10-11] MEDS ORDERED: VALP250C48 PO (12:49)
[2021-10-11] MEDS ORDERED: DIVA-80 PO (12:50)
[2021-10-11] MEDS ORDERED: DIVA-112 PO (12:54)
[2021-10-14] MEDS ORDERED: LOSA100T58 PO (12:18)
[2021-10-14] MEDS ORDERED: AMLO10TA55 PO (12:18)
[2021-10-14] MEDS ORDERED: OLAN15TA36 PO (12:18)
[2021-10-14] MEDS ORDERED: METO50 PO (12:18)
[2021-10-14] MEDS ORDERED: HYDR25TA PO (12:18)
[2021-10-14] MEDS ORDERED: BENZ2TAB76 PO (12:18)
[2021-10-14] MEDS ORDERED: TRAZ-252 PO (12:18)
[2021-10-14] MEDS ORDERED: DIVA-80 PO (12:18)
[2021-10-14] MEDS ORDERED: CHLO200T10 PO (12:18)
[2021-10-15] MEDS ORDERED: NACL1 PO (17:12)
== END 2021-10-11 19:10 | disposition home or self-care (01) | DRG 441 ==
LOC: EMS 15:36 → 5N 18:55
PROVIDERS: ADMIT Internal Medicine; ATTEND Internal Medicine
DX: K72.90 Hepatic failure, unspecified without coma (principal); G92.9 Unspecified toxic encephalopathy; E87.1 Hypo-osmolality and hyponatremia; R65.10 Systemic inflammatory response syndrome (SIRS) of non-infectious origin without acute organ dysfunction; M62.82 Rhabdomyolysis; L03.114 Cellulitis of left upper limb; B19.20 Unspecified viral hepatitis C without hepatic coma; K74.60 Unspecified cirrhosis of liver; E66.9 Obesity, unspecified; E87.6 Hypokalemia; I10 Essential (primary) hypertension; F25.0 Schizoaffective disorder, bipolar type; Z20.822 Contact with and (suspected) exposure to COVID-19; F19.10 Other psychoactive substance abuse, uncomplicated; Z87.891 Personal history of nicotine dependence; Z59.00 Homelessness unspecified; Z88.0 Allergy status to penicillin; Z88.2 Allergy status to sulfonamides; Z88.8 Allergy status to other drugs, medicaments and biological substances; Z91.19 Patient's noncompliance with other medical treatment and regimen; Z68.33 Body mass index [BMI] 33.0-33.9, adult
CPT/HCPCS: 70450; 71045; 80048; 80053; 80307; 81003; 82140; 82550; 83605; 84484; 85025; 85610; 87040; 87081; 93005; 99291; G0480; J0131; J0696; J7030; J7040; 36415-L1; 36415-TC

== ENCOUNTER 2021-11-03 19:50 | Emergency (ER) | payer MEDICARE, MEDICAID ==
[~2021-11-03] VITALS: Ht 182.9 cm; Wt 115.9 kg
[~2021-11-03 19:50] MED LIST changes: +AMLO10TA55 PO; +BENZ2TAB76 PO; +DIVA-80 PO; -HALO10TA21 PO; +HYDR25TA PO; +METO50 PO; +NACL1 PO; +OLAN15TA36 PO; +TRAZ-252 PO
[2021-11-03 21:42] LABS: BASOPHILS % (AUTO) 0.5 % (0.0-2.0); EOSINOPHILS % (AUTO) 1.1 % (1.0-6.0); HEMATOCRIT 33.9 % (41-53); HEMOGLOBIN 11.8 g/dL (13.5-17.5); LYMPHOCYTES # (AUTO) 2.6 K/uL (1.0-4.8); LYMPHOCYTES % (AUTO) 40.8 % (22.0-44.0); MEAN CORPUSCULAR HEMOGLOBIN 29.8 pg (26.0-34.0); MEAN CORPUSCULAR HGB CONC 34.7 G/dL (31.0-37.0); MEAN CORPUSCULAR VOLUME 86 fL (80-100); MONOCYTES # (AUTO) 0.8 K/uL (0.1-1.0); NEUTROPHILS # (AUTO) 2.9 K/uL (1.8-7.7); NEUTROPHILS % (AUTO) 44.6 % (40.0-70.0); PLATELET COUNT (AUTO) 266 K/uL (150-450); RED BLOOD CELL COUNT(AUTO) 3.95 MIL/uL (4.50-5.90); RED CELL DISTRIBUTION WIDTH 13.4 % (11.5-14.5)
[2021-11-03 21:52] LABS: ALANINE AMINOTRANSFERASE 14 U/L (12-78); ALBUMIN 3.3 g/dL (3.4-5.0); ALKALINE PHOSPHATASE 51 U/L (46-116); ANION GAP 8 mmol/L (8-16); ASPARTATE AMINOTRANSFERASE 19 U/L (15-37); BILIRUBIN,TOTAL 0.3 mg/dL (0.1-1.0); CALCIUM, TOTAL 8.9 mg/dL (8.8-10.5); CARBON DIOXIDE 30 mmol/L (22-29); CHLORIDE 94 mmol/L (98-107); CREATININE 0.72 mg/dL (0.60-1.30); GLUCOSE,RANDOM 88 mg/dL (70-110); LIPASE 85 U/L (73-393); POTASSIUM 3.7 mmol/L (3.5-5.1); SODIUM SERUM 132 mmol/L (136-145); TOTAL PROTEIN, SERUM 6.6 g/dL (6.4-8.2); UREA NITROGEN, BLOOD 8 mg/dL (7-18)
[2021-11-03 21:55] LABS: GLOMERULAR FILTR. RATE CALC > 60 mL/min (>60)
[2021-11-03] MEDS ORDERED: ACETAMINOPHEN 325 MG TABLET PO ONE (22:30)
[2021-11-03 22:52] LABS: APPEARANCE,URINE CLEAR (CLEAR); BILIRUBIN,URINE NEGATIVE (NEGATIVE); GLUCOSE, URINE (UA) NEGATIVE (NEGATIVE); KETONES,URINE NEGATIVE (NEGATIVE); LEUKOCYTE ESTERASE ,URINE NEGATIVE (NEGATIVE); NITRATE,URINE NEGATIVE (NEGATIVE); OCCULT BLOOD,URINE NEGATIVE (NEGATIVE); PROTEIN,URINE NEGATIVE (NEGATIVE); SPECIFIC GRAVITIY, URINE 1.004 (1.003-1.030); UROBILINOGEN,URINE <=1.0 mg/dL (<=1.0)
[2021-11-03 23:28] LABS: BACTERIA,URINE None Seen /HPF (None Seen); RBC,URINE None Seen /HPF (0-2); WBC,URINE None Seen /HPF (0-5)
[2021-11-03] MEDS ORDERED: SODIUM CHLORIDE 0.9% 100 ML ONE (23:28)
[2021-11-03] MEDS ORDERED: IOHEXOL 350 MG/ML 100 ML VIAL ONE (23:29)
[2021-11-04] MEDS ORDERED: DOCUSATE SODIUM 100 MG CAPSULE PO ONE (00:30)
[2021-11-04] MEDS ORDERED: DOCU-385 PO (00:34)
[2021-11-04] MEDS ORDERED: SENNA 187 MG TABLET PO ONE (00:45)
[2021-11-04 00:47] VITALS: BP 70/73
== END 2021-11-04 01:04 | disposition home or self-care (01) ==
LOC: EMS 20:01
DX: K59.00 Constipation, unspecified (principal); F31.9 Bipolar disorder, unspecified; I10 Essential (primary) hypertension; F20.9 Schizophrenia, unspecified; F17.210 Nicotine dependence, cigarettes, uncomplicated; F12.90 Cannabis use, unspecified, uncomplicated; F15.90 Other stimulant use, unspecified, uncomplicated; Z88.0 Allergy status to penicillin; Z91.09 Other allergy status, other than to drugs and biological substances; Z88.2 Allergy status to sulfonamides; Z98.890 Other specified postprocedural states
CPT/HCPCS: 99285; 74177; 80053; 81001; 83690; 85025; 36415; Q9967; J7050

== ENCOUNTER 2021-11-30 20:27 | Emergency (ER) | payer MEDICARE, MEDICAID ==
[~2021-11-30] VITALS: Ht 185.4 cm; Wt 100.0 kg
[~2021-11-30 20:27] MED LIST changes: -DIVA-80 PO; +DOCU-385 PO; -HYDR25TA PO
[2021-11-30 22:13] LABS: BASOPHILS % (AUTO) 0.4 % (0.0-2.0); EOSINOPHILS % (AUTO) 2.9 % (1.0-6.0); HEMATOCRIT 34.7 % (41-53); HEMOGLOBIN 11.7 g/dL (13.5-17.5); LYMPHOCYTES % (AUTO) 25.8 % (22.0-44.0); MEAN CORPUSCULAR HEMOGLOBIN 30.3 pg (26.0-34.0); MEAN CORPUSCULAR HGB CONC 33.8 G/dL (31.0-37.0); MEAN CORPUSCULAR VOLUME 90 fL (80-100); MONOCYTES # (AUTO) 0.7 K/uL (0.1-1.0); MONOCYTES % (AUTO) 8.7 % (2.0-9.0); NEUTROPHILS # (AUTO) 4.9 K/uL (1.8-7.7); NEUTROPHILS % (AUTO) 62.2 % (40.0-70.0); PLATELET COUNT (AUTO) 301 K/uL (150-450); RED BLOOD CELL COUNT(AUTO) 3.88 MIL/uL (4.50-5.90)
[2021-11-30 22:21] LABS: ANION GAP 7 mmol/L (8-16); CALCIUM, TOTAL 9.1 mg/dL (8.8-10.5); CARBON DIOXIDE 29 mmol/L (22-29); CHLORIDE 102 mmol/L (98-107); CREATININE 0.63 mg/dL (0.60-1.30); GLUCOSE,RANDOM 99 mg/dL (70-110); POTASSIUM 3.9 mmol/L (3.5-5.1); SODIUM SERUM 138 mmol/L (136-145); UREA NITROGEN, BLOOD 5 mg/dL (7-18)
[2021-11-30 22:22] LABS: GLOMERULAR FILTR. RATE CALC > 60 mL/min (>60)
[2021-11-30 22:26] LABS: ALANINE AMINOTRANSFERASE 9 U/L (12-78); ALBUMIN 3.5 g/dL (3.4-5.0); ALKALINE PHOSPHATASE 51 U/L (46-116); ASPARTATE AMINOTRANSFERASE 13 U/L (15-37); BILIRUBIN,TOTAL 0.2 mg/dL (0.1-1.0); TOTAL PROTEIN, SERUM 6.7 g/dL (6.4-8.2)
[2021-11-30] MEDS ORDERED: PEG 3350/NA SULF,BICARB,CL/KCL 4000 ML SOLUTION PO ONE (22:30)
[2021-12-01 00:11] VITALS: BP 133/81
== END 2021-12-01 00:30 | disposition home or self-care (01) ==
LOC: EMS 20:29
DX: K59.00 Constipation, unspecified (principal); F31.9 Bipolar disorder, unspecified; I10 Essential (primary) hypertension; F20.9 Schizophrenia, unspecified; F17.210 Nicotine dependence, cigarettes, uncomplicated; F12.90 Cannabis use, unspecified, uncomplicated; F15.90 Other stimulant use, unspecified, uncomplicated; Z86.59 Personal history of other mental and behavioral disorders; Z87.19 Personal history of other diseases of the digestive system; Z98.890 Other specified postprocedural states; Z59.00 Homelessness unspecified; Z88.0 Allergy status to penicillin; Z88.2 Allergy status to sulfonamides; Z88.8 Allergy status to other drugs, medicaments and biological substances
CPT/HCPCS: 80053; 85025; 99283

== ENCOUNTER 2022-01-09 17:50 | Emergency (ER) | payer MEDICARE, MEDICAID ==
[~2022-01-09] VITALS: Ht 180.3 cm; Wt 117.3 kg
[2022-01-09 17:54] VITALS: BP 147/93
[2022-01-10] MEDS ORDERED: MAGN-169 PO (00:59)
== END 2022-01-10 01:31 | disposition home or self-care (01) ==
LOC: EMS 17:50
DX: K59.00 Constipation, unspecified (principal); F31.9 Bipolar disorder, unspecified; F20.9 Schizophrenia, unspecified; F10.20 Alcohol dependence, uncomplicated; F12.90 Cannabis use, unspecified, uncomplicated; F15.10 Other stimulant abuse, uncomplicated; F17.210 Nicotine dependence, cigarettes, uncomplicated; I10 Essential (primary) hypertension; Z59.00 Homelessness unspecified; Z88.0 Allergy status to penicillin; Z88.2 Allergy status to sulfonamides
CPT/HCPCS: 99283; Z7502

== ENCOUNTER 2022-03-03 21:03 | Emergency (ER) | payer MEDICARE, MEDICAID ==
[~2022-03-03] VITALS: Ht 180.3 cm; Wt 117.3 kg
[~2022-03-03 21:03] MED LIST changes: -AMLO10TA55 PO; -BENZ2TAB76 PO; -DOCU-385 PO; +MAGN-169 PO; -METO50 PO; -NACL1 PO; -OLAN15TA36 PO; -TRAZ-252 PO
[2022-03-04 00:44] LABS: BASOPHILS % (AUTO) 0.9 % (0.0-2.0); EOSINOPHILS % (AUTO) 0.7 % (1.0-6.0); HEMATOCRIT 35.9 % (41-53); HEMOGLOBIN 12.4 g/dL (13.5-17.5); LYMPHOCYTES # (AUTO) 2.1 K/uL (1.0-4.8); LYMPHOCYTES % (AUTO) 22.1 % (22.0-44.0); MEAN CORPUSCULAR HEMOGLOBIN 29.7 pg (26.0-34.0); MEAN CORPUSCULAR HGB CONC 34.5 G/dL (31.0-37.0); MEAN CORPUSCULAR VOLUME 86 fL (80-100); MONOCYTES # (AUTO) 1.1 K/uL (0.1-1.0); MONOCYTES % (AUTO) 11.4 % (2.0-9.0); NEUTROPHILS # (AUTO) 6.2 K/uL (1.8-7.7); NEUTROPHILS % (AUTO) 64.9 % (40.0-70.0); PLATELET COUNT (AUTO) 334 K/uL (150-450); RED BLOOD CELL COUNT(AUTO) 4.17 MIL/uL (4.50-5.90); RED CELL DISTRIBUTION WIDTH 12.7 % (11.5-14.5)
[2022-03-04 00:56] LABS: ANION GAP 6 mmol/L (8-16); CALCIUM, TOTAL 9.4 mg/dL (8.8-10.5); CARBON DIOXIDE 28 mmol/L (22-29); CHLORIDE 102 mmol/L (98-107); CREATININE 0.66 mg/dL (0.60-1.30); GLUCOSE,RANDOM 118 mg/dL (70-110); SODIUM SERUM 136 mmol/L (136-145); UREA NITROGEN, BLOOD 5 mg/dL (7-18)
[2022-03-04 00:58] LABS: GLOMERULAR FILTR. RATE CALC > 60 mL/min (>60)
[2022-03-04 01:04] LABS: ALANINE AMINOTRANSFERASE 9 U/L (12-78); ALBUMIN 3.4 g/dL (3.4-5.0); ALKALINE PHOSPHATASE 78 U/L (46-116); ASPARTATE AMINOTRANSFERASE 16 U/L (15-37); BILIRUBIN,TOTAL 0.4 mg/dL (0.1-1.0); CREATINE KINASE, TOTAL ONLY 78 U/L (39-308); TOTAL PROTEIN, SERUM 7.7 g/dL (6.4-8.2)
[2022-03-04 01:27] VITALS: BP 137/71
== END 2022-03-04 01:29 | disposition home or self-care (01) ==
LOC: EMS 21:05
DX: R42 Dizziness and giddiness (principal); F31.9 Bipolar disorder, unspecified; I10 Essential (primary) hypertension; F20.9 Schizophrenia, unspecified; F17.210 Nicotine dependence, cigarettes, uncomplicated; F15.90 Other stimulant use, unspecified, uncomplicated; Z59.00 Homelessness unspecified; Z88.0 Allergy status to penicillin; Z88.2 Allergy status to sulfonamides; Z88.8 Allergy status to other drugs, medicaments and biological substances
CPT/HCPCS: 80053; 82550; 85025; 99283

== ENCOUNTER 2024-05-24 19:51 | Emergency (ER) | payer MEDICAID, MEDICARE ==
[~2024-05-24] VITALS: Ht 182.9 cm; Wt 77.3 kg
[2024-05-24 20:20] VITALS: BP 165/105; PULSE 96; RESP 18; TEMP 98.2; O2SAT 100
[2024-05-24 21:02] LABS: COVID AG,FIA SOURCE NASAL SWAB
[2024-05-24 21:06] LABS: APPEARANCE,URINE CLEAR (CLEAR); BILIRUBIN,URINE NEGATIVE (NEGATIVE); COLOR,URINE COLORLESS (YELLOW); GLUCOSE, URINE (UA) NEGATIVE (NEGATIVE); KETONES,URINE NEGATIVE (NEGATIVE); LEUKOCYTE ESTERASE ,URINE NEGATIVE (NEGATIVE); NITRATE,URINE NEGATIVE (NEGATIVE); OCCULT BLOOD,URINE NEGATIVE (NEGATIVE); PROTEIN,URINE NEGATIVE (NEGATIVE); SPECIFIC GRAVITIY, URINE 1.004 (1.003-1.030); UROBILINOGEN,URINE <=1.0 mg/dL (<=1.0)
[2024-05-24 21:07] LABS: BASOPHILS % (AUTO) 0.6 % (0.0-2.0); EOSINOPHILS % (AUTO) 1.1 % (1.0-6.0); HEMATOCRIT 39.2 % (41-53); HEMOGLOBIN 13.2 g/dL (13.5-17.5); LYMPHOCYTES # (AUTO) 2.5 K/uL (1.0-4.8); LYMPHOCYTES % (AUTO) 22.3 % (22.0-44.0); MEAN CORPUSCULAR HEMOGLOBIN 29.8 pg (26.0-34.0); MEAN CORPUSCULAR HGB CONC 33.8 G/dL (31.0-37.0); MEAN CORPUSCULAR VOLUME 88 fL (80-100); MONOCYTES # (AUTO) 0.9 K/uL (0.1-1.0); MONOCYTES % (AUTO) 8.1 % (2.0-9.0); NEUTROPHILS # (AUTO) 7.7 K/uL (1.8-7.7); NEUTROPHILS % (AUTO) 67.9 % (40.0-70.0); PLATELET COUNT (AUTO) 287 K/uL (150-450); RED BLOOD CELL COUNT(AUTO) 4.44 MIL/uL (4.50-5.90); RED CELL DISTRIBUTION WIDTH 13.5 % (11.5-14.5); WHITE BLOOD COUNT (AUTO) 11.3 K/uL (4.5-11.0)
[2024-05-24 21:12] LABS: SARS-COV2 (COVID) ANTIGEN,FIA Negative (Negative)
[2024-05-24 21:13] LABS: AMPHET/METH SCREEN,URINE NEGATIVE (NEGATIVE); BARBITURATE SCREEN, URINE NEGATIVE (NEGATIVE); BENZODIAZEPINES SCREEN,URINE NEGATIVE (NEGATIVE); CANNABINOID SCREEN,URINE POSITIVE (NEGATIVE); COCAINE SCREEN,URINE NEGATIVE (NEGATIVE); METHADONE SCREEN, URINE NEGATIVE (NEGATIVE); OPIATE SCREEN,URINE NEGATIVE (NEGATIVE); PHENCYCLIDINE SCREEN,URINE NEGATIVE (NEGATIVE)
[2024-05-24 21:15] LABS: ALCOHOL, URINE DRUG SCREEN NEGATIVE (NEGATIVE)
[2024-05-24 21:16] LABS: ANION GAP 6 mmol/L (8-16); CARBON DIOXIDE 30 mmol/L (22-29); CHLORIDE 98 mmol/L (98-107); CREATININE 0.54 mg/dL (0.60-1.30); GLOMERULAR FILTR. RATE CALC > 60 mL/min (>60); GLUCOSE,RANDOM 79 mg/dL (70-110); POTASSIUM 3.5 mmol/L (3.5-5.1); SODIUM SERUM 134 mmol/L (136-145); UREA NITROGEN, BLOOD 6 mg/dL (7-18)
[2024-05-24 21:19] LABS: ALCOHOL, BLOOD (SERUM) < 3 mg/dL (0-10)
[2024-05-24 21:20] LABS: ALBUMIN 3.5 g/dL (3.4-5.0); BILIRUBIN,DIRECT 0.1 mg/dL (0.00-0.20); BILIRUBIN,TOTAL 0.3 mg/dL (0.1-1.0); TOTAL PROTEIN, SERUM 6.8 g/dL (6.4-8.2)
[2024-05-24] MEDS: OLANZapine 5 MG TABLET PO ONE (21:54)
== END 2024-05-25 01:45 | disposition home or self-care (01) ==
LOC: EMS 19:51
DX: F25.9 Schizoaffective disorder, unspecified (principal); I10 Essential (primary) hypertension; F31.9 Bipolar disorder, unspecified; F12.90 Cannabis use, unspecified, uncomplicated; F15.90 Other stimulant use, unspecified, uncomplicated; F17.210 Nicotine dependence, cigarettes, uncomplicated; Z59.00 Homelessness unspecified; Z88.0 Allergy status to penicillin; Z88.2 Allergy status to sulfonamides; Z98.890 Other specified postprocedural states; Z20.822 Contact with and (suspected) exposure to COVID-19
CPT/HCPCS: 99284; 87426; 80048; 80076; 81003; 85025; 36415; 80307; G0480

== ENCOUNTER 2024-05-30 00:05 | Emergency (ER) | payer MEDICARE ==
[~2024-05-30] VITALS: Ht 182.9 cm; Wt 79.5 kg
[2024-05-30 00:31] VITALS: BP 154/84; PULSE 93; RESP 16; TEMP 98; O2SAT 99
== END 2024-05-30 10:16 | disposition home or self-care (01) ==
LOC: EMS 00:08
DX: T25.221A Burn of second degree of right foot, initial encounter (principal); I10 Essential (primary) hypertension; F25.9 Schizoaffective disorder, unspecified; F31.9 Bipolar disorder, unspecified; F12.90 Cannabis use, unspecified, uncomplicated; F15.90 Other stimulant use, unspecified, uncomplicated; F17.210 Nicotine dependence, cigarettes, uncomplicated; Z88.0 Allergy status to penicillin; Z88.2 Allergy status to sulfonamides; Z59.00 Homelessness unspecified; Z72.89 Other problems related to lifestyle; X08.8XXA Exposure to other specified smoke, fire and flames, initial encounter; Y93.89 Activity, other specified; Y92.89 Other specified places as the place of occurrence of the external cause; Y99.8 Other external cause status
CPT/HCPCS: 16020; 99283

== ENCOUNTER 2024-10-27 23:14 | Inpatient (IN) | payer MEDICARE ==
[~2024-10-27] VITALS: Ht 180.3 cm; Wt 87.1 kg
[2024-10-28 00:21] LABS: PLATELET COUNT (AUTO) 363 K/uL (150-450); RED BLOOD CELL COUNT(AUTO) 4.42 MIL/uL (4.50-5.90); RED CELL DISTRIBUTION WIDTH 13.8 % (11.5-14.5); WHITE BLOOD COUNT (AUTO) 10.7 K/uL (4.5-11.0)
[2024-10-28 00:32] LABS: CALCIUM, TOTAL 9.3 mg/dL (8.8-10.5); CREATININE 0.80 mg/dL (0.60-1.30); GLOMERULAR FILTR. RATE CALC > 60 mL/min (>60); GLUCOSE,RANDOM 110 mg/dL (70-110); SODIUM SERUM 133 mmol/L (136-145); UREA NITROGEN, BLOOD 8 mg/dL (7-18)
[2024-10-28 01:18] LABS: COVID AG,FIA SOURCE NASAL SWAB
[2024-10-28 02:05] LABS: APPEARANCE,URINE CLEAR (CLEAR); GLUCOSE, URINE (UA) NEGATIVE (NEGATIVE); LEUKOCYTE ESTERASE ,URINE NEGATIVE (NEGATIVE); NITRATE,URINE NEGATIVE (NEGATIVE); OCCULT BLOOD,URINE SMALL (NEGATIVE); PH,URINE DRUG SCREEN 6.0 (5.0-8.0); SPECIFIC GRAVITIY, URINE 1.007 (1.003-1.030)
[2024-10-28 02:10] LABS: AMPHET/METH SCREEN,URINE NEGATIVE (NEGATIVE); BARBITURATE SCREEN, URINE NEGATIVE (NEGATIVE); CANNABINOID SCREEN,URINE POSITIVE (NEGATIVE); COCAINE SCREEN,URINE NEGATIVE (NEGATIVE); METHADONE SCREEN, URINE NEGATIVE (NEGATIVE); SQUAMOUS EPITHELIAL CELL,UR Few /LPF (None Seen)
[2024-10-28 02:11] LABS: ALCOHOL, URINE DRUG SCREEN NEGATIVE (NEGATIVE)
[2024-10-28 02:28] LABS: SARS-COV2 (COVID) ANTIGEN,FIA Negative (Negative)
[2024-10-28] MEDS ORDERED: OMEPRAZOLE 20 MG CAPSULE PO PRN (09:00)
[2024-10-28] MEDS ORDERED: DOCUSATE SODIUM 100 MG CAPSULE PO PRN (09:00)
[2024-10-28] MEDS ORDERED: ONDANSETRON 4 MG TABLET PO PRN (09:00)
[2024-10-28] MEDS ORDERED: MAGNESIUM HYDROXIDE SUSPENSION 30 ML UDCUP PO PRN (09:00)
[2024-10-28] MEDS ORDERED: BACITRACIN 28 GM OINTMENT TP PRN (09:00)
[2024-10-28] MEDS ORDERED: BENZOCAINE/MENTHOL [CEPACOL] LOZENGE PO PRN (09:00)
[2024-10-28] MEDS ORDERED: LOPERAMIDE HCL 2 MG CAPSULE PO PRN (09:00)
[2024-10-28] MEDS ORDERED: MAG HYDROX/ALUMINUM HYD/SIMETH ES 30 ML SUSPENSION UDCUP PO PRN (09:00)
[2024-10-28] MEDS: ALBUTEROL SULFATE HFA 90 MCG/PUFF 8 GM INHALER IH PRN (10:10)
[2024-10-28 10:30] VITALS: BP 164/107; PULSE 69; RESP 18; TEMP 98.1; O2SAT 97
[2024-10-28] MEDS: NICOTINE 21 MG/24 HOUR PATCH TD PRN (12:42)
[2024-10-28 12:54] VITALS: BP 157/93; RESP 18; O2SAT 98
[2024-10-28] MEDS: METOPROLOL TARTRATE 50 MG TABLET PO SCH (17:24)
[2024-10-28] MEDS: MUPIROCIN CALCIUM 2% 15 GM CREAM TP SCH (17:24)
[2024-10-28 20:24] VITALS: BP 148/84; PULSE 68; RESP 18; TEMP 97.8; O2SAT 98
[2024-10-28] MEDS: BENZTROPINE MESYLATE 2 MG TABLET PO SCH (21:00)
[2024-10-29 08:43] LABS: PLATELET COUNT (AUTO) 375 K/uL (150-450); RED BLOOD CELL COUNT(AUTO) 4.85 MIL/uL (4.50-5.90); RED CELL DISTRIBUTION WIDTH 13.8 % (11.5-14.5); WHITE BLOOD COUNT (AUTO) 6.3 K/uL (4.5-11.0)
[2024-10-29 09:05] LABS: ASPARTATE AMINOTRANSFERASE 15 U/L (15-37); CALCIUM, TOTAL 8.7 mg/dL (8.8-10.5); CHOL/HDL RATIO 2.8 (4.2-7.3); CREATININE 0.73 mg/dL (0.60-1.30); GLOMERULAR FILTR. RATE CALC > 60 mL/min (>60); GLUCOSE,RANDOM 89 mg/dL (70-110); LDL CHOL (CALC.) 85 mg/dL (0-130); SODIUM SERUM 134 mmol/L (136-145); TOTAL PROTEIN, SERUM 7.0 g/dL (6.4-8.2); UREA NITROGEN, BLOOD 9 mg/dL (7-18)
[2024-10-29 09:07] VITALS: BP 170/94; PULSE 79; RESP 18; TEMP 97.9; O2SAT 98
[2024-10-29 10:46] VITALS: BP 145/86; PULSE 60; RESP 18; TEMP 97.8; O2SAT 97
[2024-10-29 16:45] VITALS: BP 177/108; PULSE 87; RESP 16; O2SAT 97
[2024-10-29 18:46] VITALS: BP 135/84; PULSE 65; RESP 16; O2SAT 95
[2024-10-29 20:13] VITALS: BP 135/84; PULSE 65; RESP 16; TEMP 97.3; O2SAT 99
[2024-10-30 00:24] VITALS: BP 152/90; PULSE 72; RESP 16; O2SAT 98
[2024-10-30 08:37] VITALS: BP 145/80; PULSE 95; RESP 18; TEMP 98.1; O2SAT 99
[2024-10-30 20:41] VITALS: BP 156/102; PULSE 92; RESP 17; TEMP 97.7; O2SAT 98
[2024-10-30 22:34] VITALS: BP 158/111; PULSE 90; RESP 16; TEMP 98.5; O2SAT 98
[2024-10-30] MEDS: IBUPROFEN 600 MG TABLET PO PRN (22:34)
[2024-10-30] MEDS: ZOLPIDEM TARTRATE 10 MG TABLET PO PRN (22:53)
[2024-10-30 23:59] VITALS: BP 127/80; PULSE 85; RESP 15; TEMP 98.3; O2SAT 96
[2024-10-31 08:40] VITALS: BP 132/76; PULSE 84; RESP 17; TEMP 97.7; O2SAT 98
[2024-10-31 10:21] VITALS: BP 127/80; PULSE 85; RESP 17; TEMP 98; O2SAT 96
[2024-10-31] MEDS: ACETAMINOPHEN 325 MG TABLET PO PRN (10:21)
[2024-10-31 11:21] VITALS: RESP 17; O2SAT 99
[2024-10-31 20:24] VITALS: BP 139/88; PULSE 78; RESP 18; TEMP 97.5; O2SAT 96
[2024-10-31 20:25] VITALS: BP 139/88; PULSE 78; RESP 18; TEMP 97.5; O2SAT 96
[2024-10-31] MEDS: PETROLATUM,WHITE 28 GM JELLY TP PRN (22:13)
[2024-11-01 08:31] VITALS: BP 151/80; PULSE 97; RESP 18; TEMP 97.8; O2SAT 98
[2024-11-01] MEDS ORDERED: OLAN10TA74 PO (09:41)
[2024-11-01] MEDS ORDERED: BENZ2TAB84 PO (09:42)
[2024-11-01] MEDS ORDERED: FLUP25VI5 IM (09:43)
[2024-11-01] MEDS ORDERED: AMLO-257 PO (09:45)
[2024-11-01] MEDS ORDERED: HYDR25TA2 PO (09:47)
== END 2024-11-01 11:40 | disposition home or self-care (01) | DRG 885 ==
LOC: EMS 23:16 → EDBEDREQTM 10-28 07:45 → B2X 10-28 08:31
PROVIDERS: ADMIT Psychiatry & Neurology Psychiatry; ATTEND Psychiatry & Neurology Psychiatry
DX: F25.9 Schizoaffective disorder, unspecified (principal); R45.851 Suicidal ideations; Z59.00 Homelessness unspecified; F10.10 Alcohol abuse, uncomplicated; F15.10 Other stimulant abuse, uncomplicated; F12.10 Cannabis abuse, uncomplicated; F41.9 Anxiety disorder, unspecified; G47.00 Insomnia, unspecified; I10 Essential (primary) hypertension; J44.9 Chronic obstructive pulmonary disease, unspecified; F31.9 Bipolar disorder, unspecified; K59.00 Constipation, unspecified; Y90.9 Presence of alcohol in blood, level not specified; S92.811A Other fracture of right foot, initial encounter for closed fracture; Z20.822 Contact with and (suspected) exposure to COVID-19; X58.XXXA Exposure to other specified factors, initial encounter; Z87.891 Personal history of nicotine dependence; Y93.89 Activity, other specified; Y92.89 Other specified places as the place of occurrence of the external cause; Y99.8 Other external cause status; Z79.899 Other long term (current) drug therapy; Z88.0 Allergy status to penicillin; Z88.2 Allergy status to sulfonamides; Z88.8 Allergy status to other drugs, medicaments and biological substances
CPT/HCPCS: 80048; 80053; 80061; 80307; 81001; 83036; 84436; 84443; 85025; 99285; G0480; J3535

== ENCOUNTER 2024-10-29 08:29 | Emergency (ER) | payer MEDICARE ==
[~2024-10-29] VITALS: Ht 182.9 cm; Wt 84.0 kg
[2024-10-29 08:31] VITALS: BP 174/88; PULSE 72; RESP 16; TEMP 97.5; O2SAT 98
== END 2024-10-29 09:57 ==
LOC: EMS 08:29
DX: S92.511A Displaced fracture of proximal phalanx of right lesser toe(s), initial encounter for closed fracture (principal); F31.9 Bipolar disorder, unspecified; F20.9 Schizophrenia, unspecified; I10 Essential (primary) hypertension; F12.90 Cannabis use, unspecified, uncomplicated; F17.210 Nicotine dependence, cigarettes, uncomplicated; F15.90 Other stimulant use, unspecified, uncomplicated; Z98.890 Other specified postprocedural states; Z88.2 Allergy status to sulfonamides; Z88.0 Allergy status to penicillin; Z79.899 Other long term (current) drug therapy; X58.XXXA Exposure to other specified factors, initial encounter; Y93.89 Activity, other specified; Y92.89 Other specified places as the place of occurrence of the external cause; Y99.8 Other external cause status
CPT/HCPCS: 99283; Z7502

== ENCOUNTER 2024-11-06 21:40 | Inpatient (IN) | payer MEDICARE ==
[~2024-11-06] VITALS: Ht 180.3 cm; Wt 84.5 kg
[~2024-11-06 21:40] MED LIST changes: +AMLO-257 PO; +BENZ2TAB84 PO; +FLUP25VI5 IM; +HYDR25TA2 PO; +OLAN10TA74 PO
[2024-11-07 00:17] LABS: COVID AG,FIA SOURCE NASAL SWAB
[2024-11-07 00:29] LABS: PLATELET COUNT (AUTO) 332 K/uL (150-450); RED BLOOD CELL COUNT(AUTO) 4.26 MIL/uL (4.50-5.90); RED CELL DISTRIBUTION WIDTH 13.4 % (11.5-14.5); WHITE BLOOD COUNT (AUTO) 6.6 K/uL (4.5-11.0)
[2024-11-07 00:34] LABS: CALCIUM, TOTAL 8.1 mg/dL (8.8-10.5); CREATININE 0.76 mg/dL (0.60-1.30); GLOMERULAR FILTR. RATE CALC > 60 mL/min (>60); GLUCOSE,RANDOM 95 mg/dL (70-110); SODIUM SERUM 133 mmol/L (136-145); UREA NITROGEN, BLOOD 18 mg/dL (7-18)
[2024-11-07 00:45] LABS: SARS-COV2 (COVID) ANTIGEN,FIA Negative (Negative)
[2024-11-07 03:04] LABS: APPEARANCE,URINE CLEAR (CLEAR); GLUCOSE, URINE (UA) NEGATIVE (NEGATIVE); LEUKOCYTE ESTERASE ,URINE NEGATIVE (NEGATIVE); NITRATE,URINE NEGATIVE (NEGATIVE); OCCULT BLOOD,URINE SMALL (NEGATIVE); PH,URINE DRUG SCREEN 6.5 (5.0-8.0); SPECIFIC GRAVITIY, URINE 1.003 (1.003-1.030)
[2024-11-07 03:07] LABS: AMPHET/METH SCREEN,URINE NEGATIVE (NEGATIVE); BARBITURATE SCREEN, URINE NEGATIVE (NEGATIVE); CANNABINOID SCREEN,URINE POSITIVE (NEGATIVE); COCAINE SCREEN,URINE NEGATIVE (NEGATIVE); METHADONE SCREEN, URINE NEGATIVE (NEGATIVE)
[2024-11-07 03:08] LABS: ALCOHOL, URINE DRUG SCREEN NEGATIVE (NEGATIVE)
[2024-11-07 08:09] VITALS: O2SAT 100
[2024-11-07] MEDS ORDERED: ALBUTEROL SULFATE HFA 90 MCG/PUFF 8 GM INHALER IH PRN (12:15)
[2024-11-07] MEDS ORDERED: OMEPRAZOLE 20 MG CAPSULE PO PRN (12:15)
[2024-11-07] MEDS ORDERED: MAGNESIUM HYDROXIDE SUSPENSION 30 ML UDCUP PO PRN (12:15)
[2024-11-07] MEDS ORDERED: DOCUSATE SODIUM 100 MG CAPSULE PO PRN (12:15)
[2024-11-07] MEDS ORDERED: BENZOCAINE/MENTHOL [CEPACOL] LOZENGE PO PRN (12:15)
[2024-11-07] MEDS ORDERED: IBUPROFEN 600 MG TABLET PO PRN (12:15)
[2024-11-07] MEDS ORDERED: PETROLATUM,WHITE 28 GM JELLY TP PRN (12:15)
[2024-11-07] MEDS ORDERED: ONDANSETRON 4 MG TABLET PO PRN (12:15)
[2024-11-07] MEDS ORDERED: LOPERAMIDE HCL 2 MG CAPSULE PO PRN (12:15)
[2024-11-07] MEDS ORDERED: ACETAMINOPHEN 325 MG TABLET PO PRN (12:15)
[2024-11-07 20:18] VITALS: BP 146/81; PULSE 88; RESP 18; TEMP 98.6; O2SAT 98
[2024-11-08 08:20] VITALS: BP 148/89; PULSE 89; RESP 18; TEMP 98.4; O2SAT 96
[2024-11-08 08:52] LABS: CHOL/HDL RATIO 2.6 (4.2-7.3); LDL CHOL (CALC.) 77.0 mg/dL (0-130)
[2024-11-08 20:22] VITALS: BP 144/82; PULSE 84; RESP 18; TEMP 98.2; O2SAT 98
[2024-11-08] MEDS: BENZTROPINE MESYLATE 2 MG TABLET PO SCH (20:22)
[2024-11-09 08:22] VITALS: BP 123/90; PULSE 85; RESP 18; TEMP 98.8; O2SAT 97
[2024-11-09] MEDS: NICOTINE POLACRILEX 4 MG LOZENGE PO PRN (10:01)
[2024-11-09] MEDS: BACITRACIN 28 GM OINTMENT TP PRN (10:09)
[2024-11-09] MEDS: BENZTROPINE MESYLATE 2 MG TABLET PO SCH (16:32)
[2024-11-09 20:24] VITALS: BP 180/111; PULSE 90; RESP 18; TEMP 97.8; O2SAT 99
[2024-11-09 21:42] VITALS: BP 137/83; PULSE 87; RESP 18; TEMP 98; O2SAT 98
[2024-11-10 08:23] VITALS: BP 134/90; PULSE 90; RESP 17; TEMP 98.4; O2SAT 99
[2024-11-10 20:25] VITALS: BP 142/90; PULSE 89; RESP 17; TEMP 98.5; O2SAT 98
[2024-11-11 08:22] VITALS: BP 137/89; PULSE 98; RESP 18; TEMP 97.5; O2SAT 98
[2024-11-11] MEDS: ETHYL ALCOHOL 62% ANTISEPTIC NASAL SANITIZER 0.6 ML AMPUL NASAL ONE (09:54)
[2024-11-11 20:10] VITALS: BP 135/85; PULSE 94; RESP 18; TEMP 98.2; O2SAT 97
[2024-11-11] MEDS: CHLORHEXIDINE GLUCONATE 2% TOWELETTE [2'S/6'S] TP SCH (20:37)
[2024-11-11] MEDS: ETHYL ALCOHOL 62% ANTISEPTIC NASAL SANITIZER 0.6 ML AMPUL NASAL SCH (20:37)
[2024-11-12 08:21] VITALS: BP 119/79; PULSE 89; RESP 19; TEMP 97.7; O2SAT 96
[2024-11-12 20:23] VITALS: BP 149/87; PULSE 97; RESP 19; TEMP 97.6; O2SAT 98
[2024-11-12] MEDS: MAG HYDROX/ALUMINUM HYD/SIMETH ES 30 ML SUSPENSION UDCUP PO PRN (21:55)
[2024-11-13 08:18] VITALS: BP 145/89; PULSE 90; RESP 18; TEMP 97.9; O2SAT 99
[2024-11-13] MEDS ORDERED: BENZ2TAB84 PO (12:57)
[2024-11-13 20:29] VITALS: BP 174/103; PULSE 87; RESP 18; TEMP 97.5; O2SAT 99
[2024-11-13 21:38] VITALS: BP 180/113; PULSE 105; RESP 19; TEMP 97.7; O2SAT 99
[2024-11-13 22:41] VITALS: RESP 18
[2024-11-14 01:50] VITALS: BP 118/68; PULSE 82; RESP 18; TEMP 97.2; O2SAT 99
[2024-11-14] MEDS: ZOLPIDEM TARTRATE 10 MG TABLET PO PRN (02:33)
[2024-11-14 08:32] VITALS: BP 162/114; PULSE 98; RESP 17; TEMP 97.8; O2SAT 98
== END 2024-11-14 11:50 | disposition home or self-care (01) | DRG 885 ==
LOC: EMS 21:40 → B2X 11-07 08:20
PROVIDERS: ADMIT Psychiatry & Neurology Psychiatry; ATTEND Psychiatry & Neurology Psychiatry
DX: F20.9 Schizophrenia, unspecified (principal); F10.10 Alcohol abuse, uncomplicated; Y90.0 Blood alcohol level of less than 20 mg/100 ml; F15.10 Other stimulant abuse, uncomplicated; F32.A Depression, unspecified; F41.9 Anxiety disorder, unspecified; G47.00 Insomnia, unspecified; I10 Essential (primary) hypertension; J44.9 Chronic obstructive pulmonary disease, unspecified; X58.XXXA Exposure to other specified factors, initial encounter; Z20.822 Contact with and (suspected) exposure to COVID-19; S92.911A Unspecified fracture of right toe(s), initial encounter for closed fracture; K59.00 Constipation, unspecified; F19.10 Other psychoactive substance abuse, uncomplicated; Z87.891 Personal history of nicotine dependence; Z88.0 Allergy status to penicillin; Z88.2 Allergy status to sulfonamides; Z88.8 Allergy status to other drugs, medicaments and biological substances; Y93.89 Activity, other specified; Y92.89 Other specified places as the place of occurrence of the external cause; Y99.8 Other external cause status
CPT/HCPCS: 80048; 80061; 80307; 81001; 83036; 84436; 84443; 85025; 86592; 87081; G0480

== ENCOUNTER 2025-01-04 16:31 | Inpatient (IN) | payer MEDICARE ==
[~2025-01-04] VITALS: Ht 182.9 cm; Wt 85.7 kg
[~2025-01-04 16:31] MED LIST changes: -BENZ2TAB84 PO; -FLUP25VI5 IM; -MAGN-169 PO
[2025-01-04 16:44] VITALS: O2SAT 98
[2025-01-04 18:55] LABS: PLATELET COUNT (AUTO) 363 K/uL (150-450); RED BLOOD CELL COUNT(AUTO) 4.64 MIL/uL (4.50-5.90); RED CELL DISTRIBUTION WIDTH 13.5 % (11.5-14.5); WHITE BLOOD COUNT (AUTO) 7.4 K/uL (4.5-11.0)
[2025-01-04 19:06] LABS: CALCIUM, TOTAL 8.6 mg/dL (8.8-10.5); CREATININE 0.54 mg/dL (0.60-1.30); GLOMERULAR FILTR. RATE CALC > 60 mL/min (>60); GLUCOSE,RANDOM 124 mg/dL (70-110); SODIUM SERUM 137 mmol/L (136-145); UREA NITROGEN, BLOOD 6 mg/dL (7-18)
[2025-01-04 21:04] LABS: APPEARANCE,URINE CLEAR (CLEAR); GLUCOSE, URINE (UA) TRACE mg/dL (NEGATIVE); LEUKOCYTE ESTERASE ,URINE NEGATIVE (NEGATIVE); NITRATE,URINE NEGATIVE (NEGATIVE); OCCULT BLOOD,URINE NEGATIVE (NEGATIVE); PH,URINE DRUG SCREEN 6.5 (5.0-8.0); SPECIFIC GRAVITIY, URINE 1.009 (1.003-1.030)
[2025-01-04 21:11] LABS: AMPHET/METH SCREEN,URINE POSITIVE (NEGATIVE); BARBITURATE SCREEN, URINE NEGATIVE (NEGATIVE); CANNABINOID SCREEN,URINE POSITIVE (NEGATIVE); COCAINE SCREEN,URINE NEGATIVE (NEGATIVE); METHADONE SCREEN, URINE NEGATIVE (NEGATIVE)
[2025-01-04 21:15] LABS: ALCOHOL, URINE DRUG SCREEN NEGATIVE (NEGATIVE)
[2025-01-04 23:15] LABS: COVID AG,FIA SOURCE NASAL SWAB
[2025-01-04 23:38] LABS: SARS-COV2 (COVID) ANTIGEN,FIA Negative (Negative)
[2025-01-05] MEDS ORDERED: ACETAMINOPHEN 325 MG TABLET PO PRN (02:45)
[2025-01-05] MEDS ORDERED: NICOTINE 14 MG/24 HOUR PATCH TD PRN (02:45)
[2025-01-05] MEDS ORDERED: LOPERAMIDE HCL 2 MG CAPSULE PO PRN ×2 (02:45→03:15)
[2025-01-05] MEDS ORDERED: MAGNESIUM HYDROXIDE SUSPENSION 30 ML UDCUP PO PRN ×2 (02:45→03:15)
[2025-01-05] MEDS ORDERED: ONDANSETRON 4 MG TABLET PO PRN ×2 (02:45→03:15)
[2025-01-05] MEDS ORDERED: GuaiFENesin/D-METHORPHAN [SUGAR-FREE] 200-20MG/10 ML SYRUP UDCUP PO PRN (02:45)
[2025-01-05] MEDS ORDERED: IBUPROFEN 400 MG TABLET PO PRN (02:45)
[2025-01-05] MEDS ORDERED: PETROLATUM,WHITE 28 GM JELLY TP PRN ×2 (02:45→03:15)
[2025-01-05] MEDS ORDERED: MAG HYDROX/ALUMINUM HYD/SIMETH ES 30 ML SUSPENSION UDCUP PO PRN ×2 (02:45→03:15)
[2025-01-05] MEDS ORDERED: DOCUSATE SODIUM 100 MG CAPSULE PO PRN ×2 (02:45→03:15)
[2025-01-05] MEDS ORDERED: ALBUTEROL SULFATE HFA 90 MCG/PUFF 8 GM INHALER IH PRN ×2 (02:45→03:15)
[2025-01-05 02:52] VITALS: BP 193/124; PULSE 81; RESP 16; TEMP 98.4; O2SAT 100
[2025-01-05] MEDS ORDERED: BENZOCAINE/MENTHOL [CEPACOL] LOZENGE PO PRN (03:15)
[2025-01-05] MEDS ORDERED: OMEPRAZOLE 20 MG CAPSULE PO PRN (03:15)
[2025-01-05] MEDS ORDERED: BACITRACIN 28 GM OINTMENT TP PRN (03:15)
[2025-01-05 04:00] VITALS: BP 157/96; PULSE 74; RESP 16; TEMP 98; O2SAT 97
[2025-01-05 08:42] VITALS: BP 131/71; PULSE 78; RESP 19; TEMP 97.8; O2SAT 97
[2025-01-05 10:32] LABS: PLATELET COUNT (AUTO) 365 K/uL (150-450); RED BLOOD CELL COUNT(AUTO) 4.64 MIL/uL (4.50-5.90); RED CELL DISTRIBUTION WIDTH 13.7 % (11.5-14.5); WHITE BLOOD COUNT (AUTO) 6.6 K/uL (4.5-11.0)
[2025-01-05 10:46] LABS: ASPARTATE AMINOTRANSFERASE 18 U/L (15-37); CALCIUM, TOTAL 8.5 mg/dL (8.8-10.5); CHOL/HDL RATIO 2.8 (4.2-7.3); CREATININE 0.57 mg/dL (0.60-1.30); GLOMERULAR FILTR. RATE CALC > 60 mL/min (>60); GLUCOSE,RANDOM 90 mg/dL (70-110); LDL CHOL (CALC.) 72 mg/dL (0-130); SODIUM SERUM 137 mmol/L (136-145); TOTAL PROTEIN, SERUM 7.0 g/dL (6.4-8.2); UREA NITROGEN, BLOOD 8 mg/dL (7-18)
[2025-01-05 20:00] VITALS: BP 142/72; PULSE 75; RESP 18; TEMP 97.9; O2SAT 99
[2025-01-05] MEDS: BENZTROPINE MESYLATE 1 MG TABLET PO SCH (21:10)
[2025-01-06 02:07] LABS: HEPATITIS C AB (EIA) Non Reactive (Non Reactive)
[2025-01-06] MEDS ORDERED: BACITRACIN 28 GM OINTMENT TP PRN (04:30)
[2025-01-06 08:40] VITALS: BP 146/79; PULSE 78; RESP 18; TEMP 97.9; O2SAT 96
[2025-01-06] MEDS: NICOTINE POLACRILEX 4 MG LOZENGE PO PRN (09:15)
[2025-01-06] MEDS: CHLORHEXIDINE GLUCONATE 0.12% 15 ML UDCUP ORAL RINSE PO SCH (16:20)
[2025-01-06 20:33] VITALS: BP 115/86; PULSE 88; RESP 18; TEMP 98; O2SAT 100
[2025-01-07 08:24] VITALS: BP 133/94; PULSE 79; RESP 16; TEMP 98.1; O2SAT 97
[2025-01-07 20:00] VITALS: BP 142/77; PULSE 83; RESP 17; TEMP 97.6; O2SAT 100
[2025-01-08 08:08] VITALS: BP 132/90; PULSE 84; RESP 17; TEMP 98.6; O2SAT 98
[2025-01-08 20:12] VITALS: BP 124/81; PULSE 76; RESP 18; TEMP 98.2; O2SAT 99
[2025-01-08] MEDS: ZOLPIDEM TARTRATE 10 MG TABLET PO PRN (23:06)
[2025-01-09 08:35] VITALS: BP 130/75; PULSE 87; RESP 17; TEMP 98.5; O2SAT 98
[2025-01-09 16:06] VITALS: BP 174/105; PULSE 95; RESP 18
[2025-01-09 17:08] VITALS: BP 151/84; PULSE 88; RESP 18
[2025-01-09 20:40] VITALS: BP 142/85; PULSE 80; RESP 18; TEMP 98.2; O2SAT 100
[2025-01-10 08:58] VITALS: BP 168/101; PULSE 88; RESP 18; TEMP 98.3; O2SAT 99
[2025-01-10 20:29] VITALS: BP 140/83; PULSE 89; RESP 18; TEMP 98.8; O2SAT 99
[2025-01-11 08:56] VITALS: BP 128/75; PULSE 96; RESP 18; TEMP 98.4; O2SAT 98
[2025-01-12 09:00] VITALS: BP 125/74; PULSE 65; RESP 17; TEMP 98.3; O2SAT 98
[2025-01-12 10:47] VITALS: BP 132/78; PULSE 72; RESP 16; O2SAT 99
[2025-01-12 11:47] VITALS: RESP 16
[2025-01-12 20:22] VITALS: BP 131/76; PULSE 94; RESP 17; TEMP 97.9; O2SAT 98
[2025-01-13 08:44] VITALS: BP 146/92; PULSE 99; RESP 18; TEMP 97.2; O2SAT 98
[2025-01-13] MEDS: IBUPROFEN 600 MG TABLET PO PRN (10:56)
[2025-01-13 20:28] VITALS: BP 138/86; PULSE 98; RESP 18; TEMP 98; O2SAT 98
[2025-01-14 08:46] VITALS: BP 158/94; PULSE 93; RESP 18; TEMP 98.4; O2SAT 99
[2025-01-14 20:32] VITALS: BP 132/86; PULSE 63; RESP 17; TEMP 98.7; O2SAT 99
[2025-01-15] MEDS: ACETAMINOPHEN 325 MG TABLET PO PRN (08:43)
[2025-01-15 10:59] VITALS: BP 158/92; PULSE 90; RESP 16; TEMP 99.1; O2SAT 98
[2025-01-15] MEDS ORDERED: BENZ-247 PO (10:59)
[2025-01-15 11:22] VITALS: TEMP 98.8
== END 2025-01-15 14:46 | disposition home or self-care (01) | DRG 885 ==
LOC: EMS 16:31 → B2X 01-05 02:31
PROVIDERS: ADMIT Psychiatry & Neurology Psychiatry; ATTEND Psychiatry & Neurology Psychiatry
DX: F31.9 Bipolar disorder, unspecified (principal); R45.851 Suicidal ideations; Z59.00 Homelessness unspecified; G47.00 Insomnia, unspecified; I10 Essential (primary) hypertension; K59.00 Constipation, unspecified; F10.10 Alcohol abuse, uncomplicated; F15.10 Other stimulant abuse, uncomplicated; F41.9 Anxiety disorder, unspecified; J44.9 Chronic obstructive pulmonary disease, unspecified; F12.10 Cannabis abuse, uncomplicated; F25.1 Schizoaffective disorder, depressive type; F17.210 Nicotine dependence, cigarettes, uncomplicated; Z88.0 Allergy status to penicillin; Z20.822 Contact with and (suspected) exposure to COVID-19; Z88.2 Allergy status to sulfonamides; Z88.8 Allergy status to other drugs, medicaments and biological substances; Z79.899 Other long term (current) drug therapy; Z71.51 Drug abuse counseling and surveillance of drug abuser
CPT/HCPCS: 80048; 80053; 80061; 80307; 81003; 83036; 84436; 84443; 85025; 86803; 87081; 87340; 99285; G0480